=== PATIENT | male | born 1935 | race Caucasian/White ===

== ENCOUNTER → 2018-04-06 14:37 | Outpatient (CLI) | payer OTHER, SELFPAY | PROVIDERS: PCP Internal Medicine; Visit Provider Urology | DX: C61 Malignant neoplasm of prostate (principal) | CPT/HCPCS: 36415; 84153 ==

== ENCOUNTER → 2018-04-21 12:08 | Outpatient (CLI) | payer OTHER, SELFPAY ==
[2018-04-21 13:20] LABS: Add Manual Diff / Slide Review NO; Basophils Percent Auto 0.9 % (0-2); Eosinophils Percent Auto 0.9 % (2-4); Hematocrit 40.4 % (41-53); Hemoglobin 13.5 g/dL (13.5-17.5); Lymphocytes Percent Auto 12.3 % (25-40); Mean Corpuscular HGB Conc 33.5 % (30-36); Mean Corpuscular Hemoglobin 30.7 PG (26-34); Mean Corpuscular Volume 91.6 fL (80-100); Monocytes Percent Auto 12.6 % (3-14); Neutrophils Absolute Auto 4100 /uL (3000-5900); Neutrophils Percent Auto 73.3 % (50-75); Platelet Count 208 X10^3/uL (150-400); Red Blood Cell Count 4.41 X10^6/uL (4.5-5.9); Red Cell Distribution Width 13.3 % (11.6-14.8); White Blood Cell Count 5.6 X10^3/uL (4.5-11.0)
[2018-04-21 13:38] LABS: Alanine Aminotransferase 28 IU/L (21-72); Albumin 4.5 g/dL (3.5-5.0); Albumin Globulin Ratio 1.2 (1.0-2.8); Alkaline Phosphatase 73 U/L (38-126); Aspartate Aminotransferase 34 IU/L (17-59); BUN Creatinine Ratio 17.1 (6-22); Bilirubin Total 0.7 mg/dL (0.2-1.3); Blood Urea Nitrogen 24 mg/dL (9-20); Calcium 10.1 mg/dL (8.4-10.2); Carbon Dioxide 28 mmol/L (22-32); Chloride 100 mmol/L (98-107); Cholesterol 178 mg/dL (140-199); Estimated Glomerular Filt Rate 48.5 mL/min (>60); Globulin 3.9 g/dL (1.7-4.1); Glucose 96 mg/dL (80-110); HDL Cholesterol 63 mg/dL (40-60); HEMOLYSIS < 15 (0-50); LDL Cholesterol Calculated 99 mg/dL (<100); Potassium 5.3 mmol/L (3.4-5.1); Sodium 140 mmol/L (137-145); Total Protein 8.4 g/dL (6.3-8.2); Triglycerides 82 mg/dL (35-150)
== END ==
PROVIDERS: PCP Internal Medicine; Visit Provider Internal Medicine
DX: I10 Essential (primary) hypertension (principal)
CPT/HCPCS: 36415; 80053; 80061; 85025

== ENCOUNTER 2018-07-11 19:18 | Emergency (ER) | payer OTHER, SELFPAY ==
[2018-07-11 19:47] VITALS: BP 133/71; PULSE 81; RESP 18; TEMP 37.1; O2SAT 100; BMI 22.6
--- NOTE | 2018-07-11 20:08 | ED.MALEGU ---
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 He was released from the hospital with an indwelling Kunz catheter, which he states initially it was draining. However, he states that for the last couple of hours he has had a constant sense of needing to urinate, and so he tried to push some urine out. Patient's states that bloody appearing material leaked out around the catheter and soak the patient's pants. They tried to call the urologist, but have not received a call back. Patient states otherwise he is feeling well, other than being tired after the surgery. They state they have come just to be sure everything is okay. Complaint: other ( Bloody urine.) Onset (ago): hour(s) ( Patient has had pink urine since his surgery, but bloody discharge was about 1 hr ago.) Duration: intermittent Location: penis ( Bloody discharge) and abdomen ( Patient has a sense of needing to urinate, and a vague suprapubic discomfort, but otherwise no pain.) Severity: moderate Quality: dull Relieving factors: none Exacerbating factors: none other ( see above) Reports denies other symptoms Related Data Home Medications Medication Instructions Recorded Confirmed ASPIRIN (Aspirin EC) 81 mg PO Q DAY #0 03/02/11 Allergies Allergy/AdvReac Type Severity Reaction Status Date / Time morphine [MORPHINE] AdvReac Intermediate LOSS OF Unverified 07/11/18 19:51 ENERGY, CONSTANTLY NEEDS TO LAY DOWN Review of Systems Review of Systems All systems reviewed & are unremarkable except as noted in HPI and below Constitutional Denies chills, Denies fever(s), Denies lethargy and Denies weakness Eyes Denies change in vision, Denies eye discharge, Denies irritation and Denies loss of vision Cardiovascular Denies chest pain, Denies irregular heart rhythm, Denies lightheadedness, Denies palpitations, Denies dyspnea, Denies dyspnea on exertion and Denies orthopnea Respiratory Denies cough, Denies dyspnea, Denies dyspnea on exertion and Denies wheezing Gastrointestinal Gastrointestinal: Denies abdominal pain, Denies change in bowel habits, Denies diarrhea, Denies nausea and Denies vomiting Genitourinary Reports hematuria Musculoskeletal Denies back pain, Denies muscle weakness, Denies numbness and Denies tingling Integumentary/Breasts Denies pruritus, Denies erythema, Denies rash and Denies wounds Neurologic Denies confusion, Denies loss of vision, Denies numbness, Denies tingling and Denies weakness Psychiatric Denies anxiety, Denies confusion, Denies depression, Denies homicidal ideation and Denies suicidal ideation Endocrine Denies palpitations Hematologic/Lymphatic Denies easy bruising Allergic/Immunologic Denies wheezing [facility] Medical History Bladder tumor (Acute) Bladder tumor (Acute) Surgical History History of bladder surgery (Acute) Social History Smoking Status: Current every day smoker Exam Initial Vital Signs Initial Vital Signs: Vital Signs Temperature 98.7 F 07/11/18 19:47 Pulse Rate 81 07/11/18 19:47 Respiratory Rate 18 07/11/18 19:47 Blood Pressure 133/71 H 07/11/18 19:47 Pulse Oximetry 100 07/11/18 19:47 Const General: cooperative and well developed Nutritional Appearance: well nourished Orientation: alert, awake, oriented x3 and not confused [facility] Head: normocephalic and atraumatic Ears: external ears normal Nose: external nose normal and No nasal discharge Face and sinus: No dry mucous membranes Mouth: oral mucosae normal and moist mucous membranes Teeth and gingiva: dentition normal Eyes General: appearance normal, both eyes and all related structures Eyelids: eyelids normal Conjunctivae: conjunctivae normal Sclera: sclerae normal Pupils: PERRL EOM: EOM intact bilaterally Neck Neck: normal visual inspection, trachea midline, No lymphadenopathy, No midline deformity and No JVD Lymphatic: No lymphedema Chest Chest: normal inspection of the chest Resp Effort & Inspection: normal respiratory effort, able to speak in complete sentences, no respiratory distress and no use of accessory muscles Auscultation: clear to auscultation bilaterally, no rales, no rhonchi and no wheezes Cardio Rate: regular rate Rhythm: regular rhythm Heart Sounds: no click, no gallops, no murmurs and no rubs Pulses: normal peripheral pulses GI Inspection: non-distended Palpation: soft, no hepatosplenomegaly, No guarding, No pulsatile mass and tender (mild, suprapubic) Auscultation: normal bowel sounds Back/Spine/Pelvis Back: No CVA tenderness Cervical Spine: cervical ROM normal and No pain with cervical ROM Thoracic/Lumbar Spine: thoracic and lumbar spine normal to inspection Skin General: no rashes or lesions noted, No jaundice and No petechiae Neuro General: alert, oriented x3, gait normal and no focal motor deficits Speech: speech normal Extrem General: full ROM, no clubbing, cyanosis or edema, no pedal edema and no calf tenderness Psych Appearance: well kempt Mental Status: mental status grossly normal Attitude: cooperative Thought Content: normal and suicidality Judgment: judgment good Course Hospital Course: Patient remained stable throughout his stay in the emergency department. Vital Signs - 8 hr 07/11/18 19:47 Temperature 98.7 F Pulse Rate 81 Respiratory Rate 18 Blood Pressure 133/71 H Pulse Oximetry 100 [facility] - Male Genitourinary Medical Records Attestation: I reviewed the patient's medical records. [facility] Narrative Medical decision making narrative: The patient was quite well-appearing, and I did not feel a UTI with likely, considering the patient's surgery was just today, and he had a dose of prophylactic antibiotics at the time of surgery. Bladder was scanned and found to have less than 100 cc of urine within. Catheter was flushed following this. At this time, I felt patient was stable for discharge home. We have discussed home care, expectations after surgery (with the caveat that for more detailed questions he should ask his surgeon, who is better able to advise him on the subject then I am). The usual indications for returning been discussed. Discharge Plan Departure Patient Disposition: Home Clinical Impression: Hematuria Discharge Date/Time: 07/11/18 20:53 Interventions: ED Discharge Assessment Last Done: 07/11/18 20:53 Activity Restrictions/Additional Instructions: Your bladder scan looks good, and your catheter is clear. If you feel the urge to empty your bladder, please resist the temptation to try to push urine out. This may cause more bleeding in your bladder, and cause stress to the surgical wound. Please plan to follow up with your surgeon, as scheduled. If you develop fevers or worsening abdominal pain, please seek further medical attention. Prescriptions: No Action ASPIRIN (Aspirin EC) 81 mg PO Q DAY Qty: 0 RF: 0 Referrals: Wing Jonas MD [Primary Care Provider] - (as needed; otherwise, follow up as scheduled with your urologist.)
--- NOTE | 2018-07-11 20:48 | PC.NURSE ---
irrigated with 180ml of sterile water with approximately 250mls returned.
[2018-07-11 20:51] VITALS: BP 123/71; PULSE 72; O2SAT 99
--- NOTE | 2018-07-11 21:10 | PC.NURSE ---
educated patient on catheter leg bag/olivo drainage bag and changing catheter from the olivo drainage bag to the leg bag.
== END 2018-07-11 20:53 | disposition home or self-care (01) ==
PROVIDERS: Emergency Provider Emergency Medicine; PCP Internal Medicine
DX: R31.9 Hematuria, unspecified (principal)
CPT/HCPCS: 51700; 51798; 99283

== ENCOUNTER 2019-03-28 16:00 | Outpatient (RCR) | payer OTHER, SELFPAY ==
--- NOTE | 2019-02-15 12:38 | PT.OIE ---
Current Diagnoses Scoliosis, unspecified (02/14/19) Past Medical History (Last Updated 12/04/18 @ 15:25 by Cathy Lundy) Bladder tumor (Acute) Bladder tumor (Acute) Atrial fibrillation (Chronic) COPD (chronic obstructive pulmonary disease) (Chronic) Lumbar spine pain (Chronic) Subdural hematoma (Chronic) History of seizures (Resolved ~2008) Past Surgical History (Last Updated 07/16/18 @ 09:32 by Jo Ann Sosa MD) History of bladder surgery (Acute) Provider Visit Care Team Role Provider Type Chalo Baugh MD Attending Provider Physician Primary Care Provider Specialty: Internal Medicine Address: [address] [place] [address], [facility] Email: Physical Therapy Initial Evaluation PT-OP-A Visit Information Start: 02/15/19 12:01 Freq: Status: Active Protocol: Document 02/14/19 14:30 HH (Rec: 02/15/19 12:38 [email or web address]) Out-Patient Physical Therapy Visit Information Visit Information Visit Type Initial Evaluation Visit Note Pt presented to clinic with his and brought in X-ray from 2011. 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 In 1979, I started changing my diet to raw vegitables, trail mix, and salmon, and my back was doing better after 4/5 months and rarely have pain. 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 In 2011, my back pain started to get worse and x-ray showed scoliosis. Since then, i always have a lot of pain after i get up in the AM and usually gets better during the day. Lifting >30 lbs tends to aggravate my back pain but laying down feels the best. Prior Treatments and Tests x-ray finding in 2011 Treatment Goals Patient/Caregiver Goals 1. To reduce his back pain especially in AM after getting OOB 2. able to lift >30 lbs without back pain 3. to be able to do proper exercises to strengthen his back and LEs Prior Functional Status Baseline Function- ADL's Independent Baseline Function- Mobility Independent Current Functional Impairments (Reported) Functional Limitations- Other Unable to lift >30 lbs due to increased back pain. Personal Factors Other Personal Factors That May Effect current smoker Therapy/Recovery PT-OP-C Subjective Start: 02/15/19 12:01 Freq: Status: Active Protocol: Document 02/14/19 14:30 HH (Rec: 02/15/19 12:38 [email or web address]) OP-PT Subjective Patient Comments Patient Comments I want to get better and be active. Patient Questionnaires Oswestry Low Back Index Oswestry Score 15 Oswestry Impairment 1 to 19% Impaired (Score 1-19) PT-OP-F Manual Assessment Start: 02/15/19 12:01 Freq: Status: Active Protocol: Document 02/14/19 14:30 HH (Rec: 02/15/19 12:38 [email or web address]) Manual Assessments Joint Mobility Assessment Joint Mobility Assessment significant hypomobility at lower thoracic and lumbar spine PT-OP-J Posture/Palpation/Skin Start: 02/15/19 12:01 Freq: Status: Active Protocol: Document 02/14/19 14:30 HH (Rec: 02/15/19 12:38 [email or web address]) Posture Evaluation Position Standing Head/C-Spine Posture Forward Head T-Spine Posture Fixed Scoliosis on (R) L-Spine Posture Fixed Scoliosis on (L) Shoulder Posture (R) Elevated Scapula Posture (R) Protracted (L) Depressed Pelvis Posture (R) Rotated Anterior Weight Distribution Weight Shifted Left Knee Posture (L) Excess Flexion (R) Excess Flexion Ankle/Foot Posture (L) Supinated (R) Supinated PT-OP-K Range of Motion Start: 02/15/19 12:01 Freq: Status: Active Protocol: Document 02/14/19 14:30 HH (Rec: 02/15/19 12:38 [email or web address]) Lumbar Spine Range of Motion Lumbar Spine Active Percentage Testing Position Standing Flexion 60 Extension 20 Rotation Left 40 Rotation Right 30 Lateral Flexion Left 40 Lateral Flexion Right 40 ROM Limitations Soft Tissue Tightness Bony Restriction Muscle Weakness Pain PT-OP-L Special Tests Start: 02/15/19 12:01 Freq: Status: Active Protocol: Document 02/14/19 14:30 HH (Rec: 02/15/19 12:38 [email or web address]) Special Tests Lumbar Spine Special Tests facet syndrome test Test Results +VE Comments extension + rot/ lateral flexion Standing Flexion Test Results +VE Comments Hump on R lower thoracic and L L/S PT-OP-M Strength Start: 02/15/19 12:01 Freq: Status: Active Protocol: Document 02/14/19 14:30 (Rec: 02/15/19 12:38 [email or web address]) Trunk Strength Trunk Manual Muscle Testing Testing Position Sitting Flexion 4- Good- Extension 3+ Fair+ Rotation Left 3+ Fair+ Rotation Right 3+ Fair+ Lateral Flexion Left 3+ Fair+ Lateral Flexion Right 3+ Fair+ Core Stabilization pt tends to use cervical flexors to assist during hollow hold position. PT-OP-Q Treatments Start: 02/15/19 12:01 Freq: Status: Active Protocol: Document 02/14/19 14:30 HH (Rec: 02/15/19 12:38 [email or web address]) Therapeutic Exercises Supine Exercises supine hip wiper Side bilateral Reps/Minutes 10 x2 Comments encourage slow wiper. 1/2 hollow hold Supine Exercise Name knee flexed, arms on the side Side bilateral Reps/Minutes 10 secs x 5 Comments HEP for trunk stability Sitting Exercises seated trunk flexion Side bilateral Equipment Used chair Reps/Minutes 10 x2 Comments ankle touch in seated position PT-OP-T Assessment and Plan Start: 02/15/19 12:01 Freq: Status: Active Protocol: Document 02/14/19 14:30 (Rec: 02/15/19 12:38 [email or web address]) Physical Therapy Assessment Rehab Potential Rehabilitation Potential Good Evaluation Complexity Number of Personal Factors/Comorbidities 3 or More Number of Body Systems Impaired 4 or More Clinical Presentation at Evaluation Stable Impairments Impairments Activity Tolerance Functional Activities Functional Mobility Pain Posture ROM Soft Tissue Mobility Strength Other Concerns Barriers to Rehabilitation chronic smoker Goals trunk ROM Impairment impaired trunk ROM Cue Worker Goal (LTG) Pt will increase his trunk ROM by 20 % to improve trunk mobility for reaching down and during amb. LTG Duration 12 weeks strength Impairment unable to lift >30 lbs Cue Worker Goal (LTG) Pt will be able to improve his trunk strength by 1MMT and able to lift >30 lbs with proper lifting techniques and without increase of symptoms LTG Duration 12 weeks HEP Impairment Pt does not have an exercise program Cue Worker Goal (LTG) Pt will be able to perform HEP with proper techniques independently. LTG Duration 8 weeks Modified oswestry LBP score Impairment impaired quality of life Cue Worker Goal (LTG) Pt will reach 0% impairment for Modified Oswestry LBP questionnaire to improve quality of life LTG Duration 12 weeks Assessment Summary Assessment Pt is a pleasant and motivated 84yo male with chronic LBP since 1960s. Pt's x-ray in 2011 showed significant scoliosis at lower thoracic and lumbar region. Upon standing flexion test, pt presents significant hump at R lower thoracic region and L L /S region. Pt demonstrated fixed R lower thoracic scoliosis and L lumbar scoliosis which was not reversible by repositioning. Pt has increased in pain with trunk extension + ROT/ lateral flexion. Pt also shows lack of trunk ROM and segmental control. He was unable to perform cat/camel today who tends to mobilize his upper thoracic region only. New HEP with seated flexion stretch, 1 /2 hollow hold and supine hip wiper (before getting OOB in AM) At this point, pt will benefit from skilled PT for pt education on bodymechanics, overall trunk stabilization and strengthening which potentially prevent pt to further develop worsening scoliosis. Physical Therapy Plan Frequency and Duration Frequency of Treatment Every Other Week Duration of Treatment 12 Plan of Care Start Date 02/15/19 Plan of Care End Date 05/17/19 Therapeutic Interventions Therapeutic Interventions Home Exercise Program Joint Mobilizations Manual Therapy Neuromuscular Re-education Patient/Caregiver Education Self-Care/Home Management Soft Tissue Mobilization Therapeutic Activities Therapeutic Exercises Modalities Electric Stimulation Hot Packs Next Visit Focus/Plan Next Note Type Treatment Note Next Visit Plan review HEP and pt's udnerstanding of his scoliosis progress trunk ROM/ stabilization ex as amor
--- NOTE | 2019-02-27 13:16 | PT.OTN ---
Current Diagnoses Scoliosis, unspecified (02/27/19) Physical Therapy Treatment Note PT-OP-A Visit Information Start: 02/15/19 12:01 Freq: Status: Active Protocol: Document 02/27/19 11:15 HH (Rec: 02/27/19 13:16 [email or web address]) Out-Patient Physical Therapy Visit Information Visit Information Visit Type Treatment Note Visit Note Pt presented to clinic with his . 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 In 1979, I started changing my diet to raw vegitables, trail mix, and salmon, and my back was doing better after 4/5 months and rarely have pain. 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 In 2011, my back pain started to get worse and x-ray showed scoliosis. Since then, i always have a lot of pain after i get up in the AM and usually gets better during the day. Lifting >30 lbs tends to aggravate my back pain but laying down feels the best. Prior Treatments and Tests x-ray finding in 2012 Treatment Goals Patient/Caregiver Goals 1. To reduce his back pain especially in AM after getting OOB 2. able to lift >30 lbs without back pain 3. to be able to do proper exercises to strengthen his back and LEs Prior Functional Status Baseline Function- ADL's Independent Baseline Function- Mobility Independent Current Functional Impairments (Reported) Functional Limitations- Other Unable to lift >30 lbs due to increased back pain. Personal Factors Other Personal Factors That May Effect current smoker Therapy/Recovery PT-OP-C Subjective Start: 02/15/19 12:01 Freq: Status: Active Protocol: Document 02/27/19 11:15 HH (Rec: 02/27/19 13:16 [email or web address]) OP-PT Subjective Patient Comments Patient Comments Pt and his reports 'we are actually very inactive and lay in bed 16-17 hours a day including sleeping. But we want to start moving more. PT-OP-F Manual Assessment Start: 02/15/19 12:01 Freq: Status: Active Protocol: Document 02/14/19 14:30 HH (Rec: 02/15/19 12:38 [email or web address]) Manual Assessments Joint Mobility Assessment Joint Mobility Assessment significant hypomobility at lower thoracic and lumbar spine PT-OP-J Posture/Palpation/Skin Start: 02/15/19 12:01 Freq: Status: Active Protocol: Document 02/14/19 14:30 HH (Rec: 02/15/19 12:38 [email or web address]) Posture Evaluation Position Standing Head/C-Spine Posture Forward Head T-Spine Posture Fixed Scoliosis on (R) L-Spine Posture Fixed Scoliosis on (L) Shoulder Posture (R) Elevated Scapula Posture (R) Protracted (L) Depressed Pelvis Posture (R) Rotated Anterior Weight Distribution Weight Shifted Left Knee Posture (L) Excess Flexion (R) Excess Flexion Ankle/Foot Posture (L) Supinated (R) Supinated PT-OP-K Range of Motion Start: 02/15/19 12:01 Freq: Status: Active Protocol: Document 02/14/19 14:30 HH (Rec: 02/15/19 12:38 [email or web address]) Lumbar Spine Range of Motion Lumbar Spine Active Percentage Testing Position Standing Flexion 60 Extension 20 Rotation Left 40 Rotation Right 30 Lateral Flexion Left 40 Lateral Flexion Right 40 ROM Limitations Soft Tissue Tightness Bony Restriction Muscle Weakness Pain PT-OP-L Special Tests Start: 02/15/19 12:01 Freq: Status: Active Protocol: Document 02/14/19 14:30 HH (Rec: 02/15/19 12:38 [email or web address]) Special Tests Lumbar Spine Special Tests facet syndrome test Test Results +VE Comments extension + rot/ lateral flexion Standing Flexion Test Results +VE Comments Hump on R lower thoracic and L L/S PT-OP-M Strength Start: 02/15/19 12:01 Freq: Status: Active Protocol: Document 02/14/19 14:30 HH (Rec: 02/15/19 12:38 [email or web address]) Trunk Strength Trunk Manual Muscle Testing Testing Position Sitting Flexion 4- Good- Extension 3+ Fair+ Rotation Left 3+ Fair+ Rotation Right 3+ Fair+ Lateral Flexion Left 3+ Fair+ Lateral Flexion Right 3+ Fair+ Core Stabilization pt tends to use cervical flexors to assist during hollow hold position. PT-OP-Q Treatments Start: 02/15/19 12:01 Freq: Status: Active Protocol: Document 02/27/19 11:15 HH (Rec: 02/27/19 13:16 [email or web address]) Cardio Equipment Recumbent Stepper (Sci-Fit) Duration (Minutes) 8 Resistance 5 Bicycle (Upright) Duration (Minutes) 8 Resistance 5 Therapeutic Exercises Supine Exercises supine hip wiper Side bilateral Reps/Minutes 10 x2 Comments encourage slow wiper. 1/2 hollow hold Supine Exercise Name knee flexed, arms on the side Side bilateral Reps/Minutes 10 secs x 5 Comments HEP for trunk stability Other Exercises seated pelvic rotation Side bilateral Reps/Minutes 5 mins cat camel Side bilateral Reps/Minutes 5mins Comments quadruped PT-OP-T Assessment and Plan Start: 02/15/19 12:01 Freq: Status: Active Protocol: Document 02/27/19 11:15 (Rec: 02/27/19 13:16 [email or web address]) Physical Therapy Assessment Assessment Summary Assessment Pt and his reports 'we are actually very inactive and lay in bed 16-17 hours a day including sleeping. But we want to move more. Pt's current primary limitation is his inactivity and lack of motivation. Educated and recommended pt to use a calender for a daily walking/ exercise program to improve overall strength, endurance and mobility. Pt cont to have difficulty with pelvic control but he did better in seated position for pelvic tilt. Physical Therapy Plan Next Visit Focus/Plan Next Note Type Treatment Note Next Visit Plan assess pt;s ex program trunk ROM/ stabilization ex as amor overall endurance/ strengthening program
--- NOTE | 2019-03-13 15:15 | PT.OTN ---
Current Diagnoses Scoliosis, unspecified (03/13/19) Physical Therapy Treatment Note PT-OP-A Visit Information Start: 02/15/19 12:01 Freq: Status: Active Protocol: Document 03/13/19 14:30 HH (Rec: 03/13/19 15:15 [email or web address]) Out-Patient Physical Therapy Visit Information Visit Information Visit Type Treatment Note Visit Note Pt presented to clinic with his . 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 In 1979, I started changing my diet to raw vegitables, trail mix, and salmon, and my back was doing better after 4/5 months and rarely have pain. 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 In 2011, my back pain started to get worse and x-ray showed scoliosis. Since then, i always have a lot of pain after i get up in the AM and usually gets better during the day. Lifting >30 lbs tends to aggravate my back pain but laying down feels the best. Prior Treatments and Tests x-ray finding in 2012 Treatment Goals Patient/Caregiver Goals 1. To reduce his back pain especially in AM after getting OOB 2. able to lift >30 lbs without back pain 3. to be able to do proper exercises to strengthen his back and LEs Prior Functional Status Baseline Function- ADL's Independent Baseline Function- Mobility Independent Current Functional Impairments (Reported) Functional Limitations- Other Unable to lift >30 lbs due to increased back pain. Personal Factors Other Personal Factors That May Effect current smoker Therapy/Recovery PT-OP-C Subjective Start: 02/15/19 12:01 Freq: Status: Active Protocol: Document 03/13/19 14:30 HH (Rec: 03/13/19 15:15 [email or web address]) OP-PT Subjective Patient Comments Patient Comments I have been moving much but i did get out of the house a few times. I forgot to bring my walking program sheet PT-OP-F Manual Assessment Start: 02/15/19 12:01 Freq: Status: Active Protocol: Document 02/14/19 14:30 HH (Rec: 02/15/19 12:38 [email or web address]) Manual Assessments Joint Mobility Assessment Joint Mobility Assessment significant hypomobility at lower thoracic and lumbar spine PT-OP-J Posture/Palpation/Skin Start: 02/15/19 12:01 Freq: Status: Active Protocol: Document 02/14/19 14:30 HH (Rec: 02/15/19 12:38 [email or web address]) Posture Evaluation Position Standing Head/C-Spine Posture Forward Head T-Spine Posture Fixed Scoliosis on (R) L-Spine Posture Fixed Scoliosis on (L) Shoulder Posture (R) Elevated Scapula Posture (R) Protracted (L) Depressed Pelvis Posture (R) Rotated Anterior Weight Distribution Weight Shifted Left Knee Posture (L) Excess Flexion (R) Excess Flexion Ankle/Foot Posture (L) Supinated (R) Supinated PT-OP-K Range of Motion Start: 02/15/19 12:01 Freq: Status: Active Protocol: Document 02/14/19 14:30 HH (Rec: 02/15/19 12:38 [email or web address]) Lumbar Spine Range of Motion Lumbar Spine Active Percentage Testing Position Standing Flexion 60 Extension 20 Rotation Left 40 Rotation Right 30 Lateral Flexion Left 40 Lateral Flexion Right 40 ROM Limitations Soft Tissue Tightness Bony Restriction Muscle Weakness Pain PT-OP-L Special Tests Start: 02/15/19 12:01 Freq: Status: Active Protocol: Document 02/14/19 14:30 HH (Rec: 02/15/19 12:38 [email or web address]) Special Tests Lumbar Spine Special Tests facet syndrome test Test Results +VE Comments extension + rot/ lateral flexion Standing Flexion Test Results +VE Comments Hump on R lower thoracic and L L/S PT-OP-M Strength Start: 02/15/19 12:01 Freq: Status: Active Protocol: Document 02/14/19 14:30 HH (Rec: 02/15/19 12:38 [email or web address]) Trunk Strength Trunk Manual Muscle Testing Testing Position Sitting Flexion 4- Good- Extension 3+ Fair+ Rotation Left 3+ Fair+ Rotation Right 3+ Fair+ Lateral Flexion Left 3+ Fair+ Lateral Flexion Right 3+ Fair+ Core Stabilization pt tends to use cervical flexors to assist during hollow hold position. PT-OP-Q Treatments Start: 02/15/19 12:01 Freq: Status: Active Protocol: Document 03/13/19 14:30 HH (Rec: 03/13/19 15:15 HH [email or web address]) Cardio Equipment Treadmill Duration (Minutes) 10 Speed 2.2 Incline 0 Therapeutic Exercises Supine Exercises deadbug Side bilateral Reps/Minutes 10 times x 3 supine hip wiper Side bilateral Reps/Minutes 10 x2 Comments encourage slow wiper. 1/2 hollow hold Supine Exercise Name knee flexed, arms on the side Side bilateral Reps/Minutes 10 secs x 5 Comments HEP for trunk stability Sitting Exercises seated trunk extension Side bilateral Equipment Used chair and PVC at T/S Reps/Minutes 10 x2 seated trunk flexion Side bilateral Equipment Used chair Reps/Minutes 10 x2 Comments ankle touch in seated position Standing Exercises standing hip hinge Side bilateral Reps/Minutes 10 x 2 Comments cues to maintain neutral spine front squat Side bilateral Equipment Used with blue weighted ball 4.4 lbs Reps/Minutes 10 x 2 trunk ext + shoulder flex Side bilateral Reps/Minutes 10 x 2 ankle touch Side bilateral Reps/Minutes 10 x 2 Comments buttock against wall PT-OP-T Assessment and Plan Start: 02/15/19 12:01 Freq: Status: Active Protocol: Document 03/13/19 14:30 HH (Rec: 03/13/19 15:15 HH [email or web address]) Physical Therapy Assessment Assessment Summary Assessment Pt cont presents lack of motivation for physical activity. Education is given to cont encourage both pt and his . Pt amor tx well with focus on trunk active movements and overall B LE strengthening. Physical Therapy Plan Next Visit Focus/Plan Next Note Type Treatment Note Next Visit Plan assess pt;s ex program trunk ROM/ stabilization ex as amor overall endurance/ strengthening program
--- NOTE | 2019-03-28 18:23 | PT.OTN ---
Current Diagnoses Scoliosis, unspecified (03/28/19) Physical Therapy Treatment Note PT-OP-A Visit Information Start: 02/15/19 12:01 Freq: Status: Active Protocol: Document 03/28/19 16:00 HH (Rec: 03/28/19 18:23 [email or web address]) Out-Patient Physical Therapy Visit Information Visit Information Visit Type Progress Note Visit Note Pt presented to clinic with his . 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 In 1979, I started changing my diet to raw vegitables, trail mix, and salmon, and my back was doing better after 4/5 months and rarely have pain. 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 In 2011, my back pain started to get worse and x-ray showed scoliosis. Since then, i always have a lot of pain after i get up in the AM and usually gets better during the day. Lifting >30 lbs tends to aggravate my back pain but laying down feels the best. Prior Treatments and Tests x-ray finding in 2012 Treatment Goals Patient/Caregiver Goals 1. To reduce his back pain especially in AM after getting OOB 2. able to lift >30 lbs without back pain 3. to be able to do proper exercises to strengthen his back and LEs Prior Functional Status Baseline Function- ADL's Independent Baseline Function- Mobility Independent Current Functional Impairments (Reported) Functional Limitations- Other Unable to lift >30 lbs due to increased back pain. Personal Factors Other Personal Factors That May Effect current smoker Therapy/Recovery PT-OP-C Subjective Start: 02/15/19 12:01 Freq: Status: Active Protocol: Document 03/28/19 16:00 HH (Rec: 03/28/19 18:23 [email or web address]) OP-PT Subjective Patient Comments Patient Comments Me and my has been walking a little bit for 10 mins few times a week now. My back is doing good so far. PT-OP-F Manual Assessment Start: 02/15/19 12:01 Freq: Status: Active Protocol: Document 02/14/19 14:30 HH (Rec: 02/15/19 12:38 [email or web address]) Manual Assessments Joint Mobility Assessment Joint Mobility Assessment significant hypomobility at lower thoracic and lumbar spine PT-OP-J Posture/Palpation/Skin Start: 02/15/19 12:01 Freq: Status: Active Protocol: Document 02/14/19 14:30 HH (Rec: 02/15/19 12:38 [email or web address]) Posture Evaluation Position Standing Head/C-Spine Posture Forward Head T-Spine Posture Fixed Scoliosis on (R) L-Spine Posture Fixed Scoliosis on (L) Shoulder Posture (R) Elevated Scapula Posture (R) Protracted (L) Depressed Pelvis Posture (R) Rotated Anterior Weight Distribution Weight Shifted Left Knee Posture (L) Excess Flexion (R) Excess Flexion Ankle/Foot Posture (L) Supinated (R) Supinated PT-OP-K Range of Motion Start: 02/15/19 12:01 Freq: Status: Active Protocol: Document 02/14/19 14:30 HH (Rec: 02/15/19 12:38 [email or web address]) Lumbar Spine Range of Motion Lumbar Spine Active Percentage Testing Position Standing Flexion 60 Extension 20 Rotation Left 40 Rotation Right 30 Lateral Flexion Left 40 Lateral Flexion Right 40 ROM Limitations Soft Tissue Tightness Bony Restriction Muscle Weakness Pain PT-OP-L Special Tests Start: 02/15/19 12:01 Freq: Status: Active Protocol: Document 02/14/19 14:30 HH (Rec: 02/15/19 12:38 [email or web address]) Special Tests Lumbar Spine Special Tests facet syndrome test Test Results +VE Comments extension + rot/ lateral flexion Standing Flexion Test Results +VE Comments Hump on R lower thoracic and L L/S PT-OP-M Strength Start: 02/15/19 12:01 Freq: Status: Active Protocol: Document 02/14/19 14:30 HH (Rec: 02/15/19 12:38 [email or web address]) Trunk Strength Trunk Manual Muscle Testing Testing Position Sitting Flexion 4- Good- Extension 3+ Fair+ Rotation Left 3+ Fair+ Rotation Right 3+ Fair+ Lateral Flexion Left 3+ Fair+ Lateral Flexion Right 3+ Fair+ Core Stabilization pt tends to use cervical flexors to assist during hollow hold position. PT-OP-Q Treatments Start: 02/15/19 12:01 Freq: Status: Active Protocol: Document 03/28/19 16:00 (Rec: 03/28/19 18:23 [email or web address]) Cardio Equipment Elliptical Duration (Minutes) 5 Resistance 3 Recumbent Stepper (Sci-Fit) Duration (Minutes) 5 Resistance 10 Therapeutic Exercises Supine Exercises supine leg lift Side bilateral Reps/Minutes 10 secs hold x 5 deadbug Side bilateral Reps/Minutes 10 times x 5 1/2 hollow hold Supine Exercise Name knee flexed, arms on the side Side bilateral Reps/Minutes 10 secs x 5 Comments HEP for trunk stability Prone Exercises prone ext on ball Equipment Used red therapy ball Reps/Minutes 10secs hold x 5 Sitting Exercises seated trunk flexion Side bilateral Equipment Used chair Reps/Minutes 10 x2 Comments ankle touch in seated position Standing Exercises lateral deadlift Side bilateral Equipment Used 2 x10 lbs DB Reps/Minutes 10 x 2 Comments lift from chair from the side. front deadlift Side bilateral Equipment Used 2 x 10lbs db Reps/Minutes 10 x 2 Comments lift from 10 inch box with neutral spine PT-OP-T Assessment and Plan Start: 02/15/19 12:01 Freq: Status: Active Protocol: Document 03/28/19 16:00 (Rec: 03/28/19 18:23 [email or web address]) Physical Therapy Assessment Goals trunk ROM Impairment impaired trunk ROM Clin Asst Goal (LTG) Pt will increase his trunk ROM by 20 % to improve trunk mobility for reaching down and during amb. LTG Duration 12 weeks strength Impairment unable to lift >30 lbs Clin Asst Goal (LTG) 515; able to lift 20 lbs DB Pt will be able to improve his trunk strength by 1MMT and able to lift >30 lbs with proper lifting techniques and without increase of symptoms LTG Duration 12 weeks HEP Impairment Pt does not have an exercise program Clin Asst Goal (LTG) 515; pt still primarily inactive but started to walk 10mins few times a week. Pt will be able to perform HEP with proper techniques independently. LTG Duration 8 weeks Modified oswestry LBP score Impairment impaired quality of life Alf Goal (LTG) Pt will reach 0% impairment for Modified Oswestry LBP questionnaire to improve quality of life LTG Duration 12 weeks Progress Towards Goals Progress Towards Goals Slow Progress due to Noncompliance Assessment Summary Assessment pt showed improved motivation for exercises. Focused on overall mobility and strengthening for core and back today. He feels very fatigue after using eliptical. Remind pt again the importance of daily walking to overall health. Physical Therapy Plan Next Visit Focus/Plan Next Note Type Treatment Note Next Visit Plan assess pt;s ex program trunk ROM/ stabilization ex as amor overall endurance/ strengthening program
== END 2019-06-20 14:56 | disposition home or self-care (01) ==
LOC: PHYS 16:00
PROVIDERS: PCP Student in an Organized Health Care Education/Training Program; Visit Provider Student in an Organized Health Care Education/Training Program
DX: M41.9 Scoliosis, unspecified (principal)
CPT/HCPCS: 97110; 97163

== ENCOUNTER → 2019-05-29 14:42 | Outpatient (CLI) | payer OTHER, SELFPAY ==
[2019-05-29 17:21] LABS: Prostate Specific Antigen 4.95 ng/mL (0.10-4.00)
== END ==
PROVIDERS: PCP Student in an Organized Health Care Education/Training Program; Visit Provider Urology
DX: C61 Malignant neoplasm of prostate (principal)
CPT/HCPCS: 36415; 84153

== ENCOUNTER → 2019-07-17 15:35 | Outpatient (CLI) | payer OTHER, SELFPAY ==
--- NOTE | 2019-07-17 15:38 | DI.RAD.S_ITS ---
PROCEDURE: XR CHEST 2V INDICATIONS: diminished breath sounds right TECHNIQUE: 2 views of the chest were acquired. COMPARISON: [facility], , CHEST 2 VIEW, 01/17/2012, 13:18. FINDINGS: Surgical changes and devices: None. Lungs and pleura: Lungs are clear. No pleural effusions or pneumothorax. Mediastinum: Mediastinal contours are normal. Heart size is normal. Bones and chest wall: No suspicious bony abnormalities. Soft tissues appear unremarkable. IMPRESSION: Normal for age, source of current signs and symptoms potentially a manifestation of pneumonia symptoms is not seen. Dictated by: Bebo Ford M.D. on 07/17/2019 at 16:11 Approved by: Bebo Ford M.D. on 07/17/2019 at 16:11
== END ==
PROVIDERS: PCP Student in an Organized Health Care Education/Training Program; Visit Provider Nurse Practitioner Family
DX: R05 Cough (principal)
CPT/HCPCS: 71046

== ENCOUNTER → 2019-07-31 10:19 | Outpatient (CLI) | payer OTHER, SELFPAY ==
[2019-07-31 10:56] LABS: Add Manual Diff / Slide Review NO; Basophils Absolute Auto 0 /uL (0-100); Basophils Percent Auto 0.5 % (0-2); Eosinophils Absolute Auto 100 /uL (0-450); Eosinophils Percent Auto 1.6 % (2-4); Hematocrit 39.2 % (41-53); Hemoglobin 13.1 g/dL (13.5-17.5); Lymphocytes Absolute Auto 800 /uL (1100-4500); Lymphocytes Percent Auto 12.3 % (25-40); Mean Corpuscular HGB Conc 33.3 % (30-36); Mean Corpuscular Volume 93.1 fL (80-100); Monocytes Absolute Auto 400 /uL (0-900); Neutrophils Absolute Auto 4900 /uL (1500-7000); Neutrophils Percent Auto 79.6 % (50-75); Platelet Count 154 X10^3/uL (150-400); Red Blood Cell Count 4.22 X10^6/uL (4.5-5.9); Red Cell Distribution Width 13.7 % (11.6-14.8); White Blood Cell Count 6.2 X10^3/uL (4.5-11.0)
--- NOTE | 2019-07-31 11:01 | DI.CT.S_ITS ---
PROCEDURE: CT CHEST WO CON INDICATIONS: SOB TECHNIQUE: Noncontrast 5 mm thick sections acquired from the pulmonary apices to the posterior costophrenic angles. 1 mm lung window, 5 mm thick coronal and sagittal and 7 mm axial MIP reformats were then acquired. For radiation dose reduction, the following was used: automated exposure control, adjustment of mA and/or kV according to patient size. COMPARISON: None. FINDINGS: Image quality: Excellent. Lungs and pleura: There is a 1.4 cm maximum diameter spiculated mass in the superior segment of the right upper lobe which is highly suspicious for a small bronchogenic carcinoma. A 2 mm subpleural nodule is present in the left lower lobe. There is a 0.3 x 0.6 cm nodular density in the left apex. No acute air space opacities. No pleural effusions or pneumothorax. Central and peripheral airways are patent and normal in caliber. Mediastinum: Heart size is normal. No pericardial effusion. Left main coronary artery calcifications. No mediastinal adenopathy by size criteria. Thoracic aorta and central pulmonary arteries are normal in size. Esophagus is normal in caliber. No hiatal hernia. Bones and chest wall: No suspicious bony lesions. Multifactorial canal stenosis at L3-L4. No vertebral body compression fractures. No axillary or supraclavicular adenopathy by size criteria. Thyroid gland contains a large benign calcification in the right lobe measuring 1 cm.. Abdomen: Visualized upper abdominal solid organs and bowel loops appear normal in the absence of contrast. IMPRESSION: 1. 1.4 cm maximum diameter spiculated mass in the right upper lobe, highly suspicious for bronchogenic carcinoma. 2. There is also a 0.3 x 0.6 cm left upper lobe nodule and a 2 mm left lower lobe nodule. 3. Coronary artery disease. Comment: Consider PET/CT. Additionally, the right upper lobe mass is amenable to CT-guided biopsy for tissue diagnosis. Dictated by: Jayce Hernandez M.D. on 07/31/2019 at 10:52 Approved by: Jayce Hernandez M.D. on 07/31/2019 at 11:14
[2019-07-31 11:16] LABS: Blood Urea Nitrogen 35 mg/dL (9-20); C-Reactive Protein Quant 0.7 mg/dL (<1.0); Calcium 9.5 mg/dL (8.4-10.2); Carbon Dioxide 27 mmol/L (22-32); Chloride 102 mmol/L (98-107); Estimated Glomerular Filt Rate 48.4 mL/min (>60); Glucose 153 mg/dL (80-110); HEMOLYSIS < 15 (0-50); Potassium 4.2 mmol/L (3.4-5.1); Sodium 138 mmol/L (137-145)
[2019-07-31 11:44] LABS: Procalcitonin < 0.05 ng/mL (<0.5)
== END ==
PROVIDERS: PCP Student in an Organized Health Care Education/Training Program; Visit Provider Student in an Organized Health Care Education/Training Program
DX: R06.02 Shortness of breath (principal); R91.8 Other nonspecific abnormal finding of lung field; J98.8 Other specified respiratory disorders; I25.10 Atherosclerotic heart disease of native coronary artery without angina pectoris; M48.061 Spinal stenosis, lumbar region without neurogenic claudication
CPT/HCPCS: 36415; 71250; 80048; 84145; 85025; 86140

== ENCOUNTER → 2019-12-28 11:39 | Outpatient (CLI) | payer OTHER, SELFPAY ==
--- NOTE | 2019-12-28 11:41 | DI.CT.S_ITS ---
PROCEDURE: CT CHEST WO CON INDICATIONS: Right upper lobe lung mass TECHNIQUE: Noncontrast 2.0-2.5 mm thick sections acquired from the pulmonary apices to the posterior costophrenic angles. 7 mm thick axial MIP and 5 mm coronal and sagittal reformats were then acquired. A low radiation dose technique was utilized. COMPARISON: [facility], [place], PET NECK TO MID THIGH, 08/10/2019, 14:11. [facility], CT, CT CHEST WO CON, 07/31/2019, 10:24. FINDINGS: Image quality: Diagnostic, given the low radiation dose technique. Lungs and pleura: There is a 1.4 cm spiculated nodule in the superior segment of the right upper lobe, unchanged since the last exam. A cluster of 3-4 mm subpleural nodules are seen anterior to the major fissure, also unchanged. There is discoid atelectasis in the right lower lobe. Mediastinum: Heart size is normal. No pericardial effusion. No mediastinal adenopathy by size criteria. Thoracic aorta and central pulmonary arteries are normal in size. Moderate atherosclerosis. Esophagus is normal in caliber. No hiatal hernia. Bones and chest wall: No suspicious bony lesions. No vertebral body compression fractures. No axillary or supraclavicular adenopathy by size criteria. There is a densely calcified nodule in the right thyroid lobe. Abdomen: Visualized upper abdomen solid organs and bowel loops appear normal in the absence of contrast. IMPRESSION: 1. A 1.4 cm spiculated nodule in the superior segment right lower lobe, unchanged in size. Continued followup is recommended. 2. A cluster of small lung nodules are seen in the right upper lobe are stable, most likely inflammatory or infectious in etiology. Fleischner Society criteria for SOLID lung nodule followup. Nodule size (mm)Low-risk patientHigh-risk patient<6 (single or multiple)No routine followup.Optional CT at 12 months. 6-8 (single or multiple)CT at 6-12 months, then optional CT at 18-24 mo.CT at 6-12 months, then CT at 18-24 months. >8 (single)CT at 3 months, PET-CT, or biopsy. Same as for low-risk pts. >8 (multiple)CT at 3-6 months, then optional CT at 18-24 mo.CT at 3-6 months, then CT at 18-24 months. Fleischner Society criteria for SUB-SOLID lung nodule followup. Solitary pure ground-glass nodules<6 mm (ground glass or part solid)No followup needed. 6 mm or larger (ground glass)CT at 6-12 months to confirm persistence, then CT every 2 years until 5 years.6 mm or larger (part solid)CT at 3-6 months to confirm persistence, then annual CT until 5 years if unchanged and solid component remains <6 mm. Multiple sub-solid nodules<6 mmCT at 3-6 months, then CT consider at 2 & 4 years for high risk patients. [address] at 3-6 months. Subsequent management based on most suspicious lesions. Recommendations do not apply to lung cancer screening, patients with immunosuppression, or patients with known primary cancer. Dictated by: Luann Hodgson M.D. on 12/28/2019 at 14:01 Approved by: Luann Hodgson M.D. on 12/28/2019 at 18:18
== END ==
PROVIDERS: PCP Student in an Organized Health Care Education/Training Program; Referring Provider Student in an Organized Health Care Education/Training Program; Visit Provider Student in an Organized Health Care Education/Training Program
DX: R91.8 Other nonspecific abnormal finding of lung field (principal)
CPT/HCPCS: 71250

== ENCOUNTER 2020-02-26 10:40 | Emergency (ER) | payer OTHER, SELFPAY ==
[2020-02-26 10:47] VITALS: BP 142/67; PULSE 72; RESP 16; TEMP 36.7; O2SAT 99; BMI 19.8
--- NOTE | 2020-02-26 11:17 | ED.GENADULT ---
HPI - General Adult General Chief complaint: Extremity Injury, Upper Stated complaint: Pain in both shoulders Time Seen by Provider: 02/26/20 10:49 Source: patient Mode of arrival: Ambulatory Limitations: no limitations History of Present Illness HPI narrative: 85-year-old male here for evaluation of bilateral shoulder pain. He states that it has been going on for the past 2-3 weeks. No specific trauma. States it is worse in the morning. It does hurt him to raise his arms above his head. He is getting some tingling down both of his arms. Took a 1 time dose of an anti-inflammatory couple days ago and has also been taking a muscle relaxant he has at home without any improvement. He has also been using topical CBD oil without much relief. Related Data Home Medications Medication Instructions Recorded Confirmed aspirin 81 mg tablet,delayed 81 mg PO DAILY 07/31/19 01/15/20 release Previous Rx's Medication Instructions Recorded tizanidine 4 mg capsule 4 mg PO Q12H PRN #30 cap 04/04/19 lisinopril 10 mg tablet 10 mg PO DAILY #90 tab 06/20/19 albuterol sulfate 90 mcg/actuation 2 puff INHALATION Q6H PRN #8 gram 07/17/19 aerosol inhaler atorvastatin 10 mg tablet 10 mg PO BEDTIME #90 tab 07/18/19 meloxicam [Mobic] 7.5 mg PO BID PRN #60 tab 02/26/20 Allergies Allergy/AdvReac Type Severity Reaction Status Date / Time morphine [MORPHINE] AdvReac Intermediate LOSS OF Verified 01/15/20 11:04 ENERGY, CONSTANTLY NEEDS TO LAY DOWN Review of Systems Constitutional Constitutional: Denies fever(s) and Denies headache(s) ENT Ears, Nose, Mouth, and Throat: Denies headache(s) Cardiovascular Cardiovascular: Denies chest pain and Denies dyspnea Respiratory Respiratory: Denies dyspnea Gastrointestinal Gastrointestinal: Denies abdominal pain Genitourinary Genitourinary: Denies dysuria Musculoskeletal Musculoskeletal: Reports tingling Comments: Bilateral shoulder pain Integumentary/Breasts Skin/Breast: Denies rash Neurologic Neurologic: Denies headache(s) and Reports tingling Hematologic/Lymphatic Hematologic/Lymphatic: Denies easy bleeding and Denies easy bruising Allergic/Immunologic Allergic/Immunologic: Denies urticaria Patient History Medical History Atrial fibrillation (Chronic) Bladder tumor (Acute) Bladder tumor (Acute) COPD (chronic obstructive pulmonary disease) (Chronic) History of seizures (Resolved ~2008) Lumbar spine pain (Chronic) Subdural hematoma (Chronic) Surgical History (Updated 07/16/18 @ 09:32 by Jo Ann Sosa MD) History of bladder surgery (Acute) Family History (Updated 12/04/18 @ 15:26 by Cathyjean paul Lundy) Brother Cancer Brother Cancer Father No problems noted. Social History Smoking Status: Current every day smoker Smoking Status: Current every day smoker alcohol intake frequency: 0-2 drinks per day Substance Use Type: former substance user Exam Initial Vital Signs Initial Vital Signs: Vital Signs Temperature 98.1 F 02/26/20 10:47 Pulse Rate 72 02/26/20 10:47 Respiratory Rate 16 02/26/20 10:47 Blood Pressure 142/67 H 02/26/20 10:47 Pulse Oximetry 99 02/26/20 10:47 Const General: cooperative and comfortable Limitations: mental status not altered HENMT Head: normal to inspection and normocephalic Resp Effort & Inspection: normal respiratory effort Auscultation: clear to auscultation bilaterally Cardio Rate: regular rate Rhythm: regular rhythm Back/Spine/Pelvis Cervical Spine: cervical muscular tenderness, No cervical spinal tenderness and No step off deformity Thoracic/Lumbar Spine: No thoracic spinal tenderness Skin Lesions: no lesions Rashes: no rashes Neuro General: alert, awake and oriented x3 Cognition: normal cognition Speech: speech normal Extrem General: normal to inspection and capillary refill normal Psych Appearance: grossly normal and well kempt Course Vital Signs Vital signs: Vital Signs - 8 hr 02/26/20 10:47 Temperature 98.1 F Pulse Rate 72 Respiratory Rate 16 Blood Pressure 142/67 H Pulse Oximetry 99 Medical Decision Making MDM Narrative Medical decision making narrative: Symptoms most consistent with musculoskeletal etiology. Low suspicion for acute surgical issue or trauma. We did discuss use of anti-inflammatories. Will send home with a prescription for Mobic. He has muscle relaxers at home. Given his age we will avoid opioid medication. Have him follow-up with his primary provider. Feel patient could be safely discharged home without further workup here in the ER. Discharge Plan Departure Patient Disposition: Home Clinical Impression: Bilateral shoulder pain Qualifiers: Chronicity: acute Qualified Code(s): M25.511 - Pain in right shoulder Instructions: How To Perform RICE (Rest, Ice, Compress, Elevate), DI for Shoulder Pain Activity Restrictions/Additional Instructions: Recommend that you take the Mobic as directed for the next 7-10 days with food. He can continue your other medications as directed. Contact your primary provider for follow-up. Prescriptions: New meloxicam [Mobic] 7.5 mg tablet 7.5 mg PO BID PRN (Reason: pain) Qty: 60 RF: 0 No Action tizanidine 4 mg capsule 4 mg PO Q12H PRN (Reason: muscle spasticity) Qty: 30 RF: 5 lisinopril 10 mg tablet 10 mg PO DAILY Qty: 90 RF: 3 atorvastatin 10 mg tablet 10 mg PO BEDTIME Qty: 90 RF: 3 aspirin [Adult Low Dose Aspirin] 81 mg tablet,delayed release (DR/EC) 81 mg PO DAILY RF: 0 albuterol sulfate 90 mcg/actuation HFA aerosol inhaler 2 puff INHALATION Q6H PRN (Reason: shortness of breath or wheezing) Qty: 8 RF: 0 Referrals: Chalo Baugh MD [Primary Care Provider] -
[2020-02-26 11:28] VITALS: BP 157/72; PULSE 63; RESP 16; O2SAT 99
== END 2020-02-26 11:29 | disposition home or self-care (01) ==
PROVIDERS: Emergency Provider Emergency Medicine; PCP Student in an Organized Health Care Education/Training Program
DX: M25.511 Pain in right shoulder (principal); M25.512 Pain in left shoulder
CPT/HCPCS: 99281

== ENCOUNTER → 2020-03-26 12:10 | Outpatient (CLI) | payer OTHER, SELFPAY ==
[2020-03-26 13:21] LABS: Add Manual Diff / Slide Review NO; Basophils Absolute Auto 100 /uL (0-100); Basophils Percent Auto 0.7 % (0-2); Eosinophils Absolute Auto 0 /uL (0-450); Eosinophils Percent Auto 0.3 % (2-4); Hematocrit 31.2 % (41-53); Hemoglobin 10.2 g/dL (13.5-17.5); Lymphocytes Absolute Auto 900 /uL (1100-4500); Lymphocytes Percent Auto 7.6 % (25-40); Mean Corpuscular HGB Conc 32.6 % (30-36); Mean Corpuscular Hemoglobin 29.2 PG (26-34); Mean Corpuscular Volume 89.4 fL (80-100); Monocytes Absolute Auto 1300 /uL (0-900); Monocytes Percent Auto 11.7 % (3-14); Neutrophils Absolute Auto 9000 /uL (1500-7000); Neutrophils Percent Auto 79.7 % (50-75); Platelet Count 359 X10^3/uL (150-400); Red Blood Cell Count 3.49 X10^6/uL (4.5-5.9); Red Cell Distribution Width 13.4 % (11.6-14.8); White Blood Cell Count 11.3 X10^3/uL (4.5-11.0)
[2020-03-26 13:35] LABS: HEMOLYSIS < 15 (0-50); Potassium 4.9 mmol/L (3.4-5.1)
[2020-03-26 13:38] LABS: BUN Creatinine Ratio 33.9 (6-22); Blood Urea Nitrogen 41 mg/dL (9-20); C-Reactive Protein Quant 5.7 mg/dL (<1.0); Calcium 9.9 mg/dL (8.4-10.2); Carbon Dioxide 27 mmol/L (22-32); Chloride 101 mmol/L (98-107); Creatine Kinase 33 U/L (55-170); Estimated Glomerular Filt Rate 57.1 mL/min (>60); Glucose 104 mg/dL (80-110); Sodium 135 mmol/L (137-145)
[2020-03-26 13:41] LABS: Erythrocyte Sedimentation Rate 58 MM/HR (0-15)
[2020-03-26 14:06] LABS: TSH w/ Reflex to FT4 1.82 uIU/mL (0.47-4.68)
== END ==
PROVIDERS: PCP Student in an Organized Health Care Education/Training Program; Referring Provider Student in an Organized Health Care Education/Training Program; Visit Provider Student in an Organized Health Care Education/Training Program
DX: C61 Malignant neoplasm of prostate (principal); M79.10 Myalgia, unspecified site
CPT/HCPCS: 36415; 80048; 82550; 84153; 84443; 85025; 85651; 86140

== ENCOUNTER → 2021-01-23 13:50 | Outpatient (CLI) | payer MEDICARE, SELFPAY ==
[2021-01-23] MEDS: COVID-19 VACC, Ad26(JANSSEN)/PF 0.5 ML IM (13:58)
== END ==
PROVIDERS: PCP Student in an Organized Health Care Education/Training Program; Visit Provider Internal Medicine
DX: Z23 Encounter for immunization (principal)
CPT/HCPCS: 0031A; 91303

== ENCOUNTER → 2021-04-15 11:04 | Outpatient (CLI) | payer OTHER, SELFPAY ==
[2021-04-15 12:37] LABS: COVID19 -Nasal RAPID Negative (Negative)
== END ==
PROVIDERS: PCP Student in an Organized Health Care Education/Training Program; Referring Provider Internal Medicine; Visit Provider Internal Medicine
DX: Z20.822 Contact with and (suspected) exposure to COVID-19 (principal)
CPT/HCPCS: 87635; C9803

== ENCOUNTER → 2021-04-28 10:59 | Outpatient (CLI) | payer OTHER, SELFPAY ==
[2021-04-28 12:28] LABS: COVID19 -Nasal RAPID Negative (Negative)
== END ==
PROVIDERS: PCP Student in an Organized Health Care Education/Training Program; Referring Provider Internal Medicine; Visit Provider Internal Medicine
DX: Z20.822 Contact with and (suspected) exposure to COVID-19 (principal)
CPT/HCPCS: 87635; C9803

== ENCOUNTER → 2021-04-29 08:57 | Outpatient (CLI) | payer OTHER, SELFPAY ==
--- NOTE | 2021-05-01 17:05 | P.PFT.S_ITS ---
Pulmonary Function Test Referral & Results Date Patient Seen: 04/29/21 Requesting provider: Chalo Baugh Indication: COPD Results: The spirometry demonstrates an FVC of 3.44 L which is 94% of predicted. The FEV1 was measured at 2.3 L which is 94% of predicted. The FEV1/FVC ratio was 69 which is 98% of predicted. Following the administration of bronchodilator there was no appreciable change. Lung volumes show an SVC of 3.63 L which is 87% of predicted. The diffusing capacity was measured at 14.48 which is 46% of predicted. No hemoglobin value was provided, so no correction for potential anemia could be ma de, if appropriate. The maximum voluntary ventilation was severely reduced Interpretation: This study demonstrates probably normal spirometry but a severely reduced diffusing capacity suggests significant disease at the capillary alveolar level Patient's severe reduction maximum voluntary ventilation without other evidence of obstructive or restrictive lung disease suggest significant neuromuscular disease as well Clinical correlation suggested
--- NOTE | 2021-05-08 08:45 | PM.PFT.1 ---
Pulmonary Function Test Referral & Results Date Patient Seen: 04/29/21 Requesting provider: Chalo Baugh Indication: COPD Results: The spirometry demonstrates an FVC of 3.44 L which is 94% of predicted. The FEV1 was measured at 2.3 L which is 94% of predicted. The FEV1/FVC ratio was 69 which is 98% of predicted. Following the administration of bronchodilator there was no appreciable change to above normal numbers. Lung volumes show an SVC of 3.63 L which is 87% of predicted. The diffusing capacity was measured at 14.48 which is 46% of predicted. No hemoglobin value was provided, so no correction for potential anemia could be made, if appropriate. The maximum voluntary ventilation was severely reduced Interpretation: This study demonstrates normal spirometry but a moderately severe reduction in diffusing capacity suggesting significant disease at the capillary alveolar level. In addition patient has a significantly reduced maximum voluntary ventilation which in the absence of other lung disease suggest significant neuromuscular disease is present Compared to PFTs performed in January 2012, current spirometry is much improved as previously patient showed evidence of obstructive lung disease with significant benefit following bronchodilator that is not seen on current study Diffusing capacity is actually slightly improved over prior number Maximum voluntary ventilation previously was much better than current study Clinical correlation suggested
== END ==
PROVIDERS: PCP Student in an Organized Health Care Education/Training Program; Referring Provider Student in an Organized Health Care Education/Training Program; Visit Provider Student in an Organized Health Care Education/Training Program
DX: J44.9 Chronic obstructive pulmonary disease, unspecified (principal); F17.210 Nicotine dependence, cigarettes, uncomplicated
CPT/HCPCS: 94060; 94726; 94729

== ENCOUNTER 2021-08-27 14:00 | Outpatient (RCR) | payer OTHER, SELFPAY | END 2021-08-27 16:00 | LOC: PUL 14:00 | PROVIDERS: PCP Student in an Organized Health Care Education/Training Program; Referring Provider Student in an Organized Health Care Education/Training Program; Visit Provider Student in an Organized Health Care Education/Training Program | DX: J44.9 Chronic obstructive pulmonary disease, unspecified (principal) | CPT/HCPCS: G0424 ==

== ENCOUNTER 2022-05-03 08:15 | Outpatient (RCR) | payer OTHER, SELFPAY ==
--- NOTE | 2022-03-23 15:15 | PT.OIE ---
Current Diagnoses Scoliosis, unspecified (03/25/22) Other spondylosis with radiculopathy, lumbosacral region (03/25/22) Weakness (03/25/22) Past Medical History (Last Reviewed 02/26/20 @ 11:18 by Chaim Harrison DO) Atrial fibrillation Bladder tumor Bladder tumor COPD (chronic obstructive pulmonary disease) History of bladder surgery History of seizures (~2008) Lumbar spine pain Subdural hematoma Past Surgical History (Last Updated 07/16/18 @ 09:32 by Jo Ann Sosa MD) History of bladder surgery Visit Care Team Role Provider Type Chalo Baugh MD Attending Provider Physician Family Provider Primary Care Provider Referring Provider Specialty: Internal Medicine Address: [address] [place] [address], [address], [facility] Email: [email or web address] Physical Therapy Initial Evaluation PT-OP-A Visit Information Start: 03/15/22 17:25 Freq: Status: Active Protocol: Document 03/23/22 15:14 [facility] (Rec: 03/23/22 16:25 [facility] [id number]) Out-Patient Physical Therapy Visit Information Visit Information Visit Type Initial Evaluation Visit Start Time 15:15 Visit Stop Time 16:01 Total Visit Minutes 46 Visit Number 1 Evaluation Information Evaluation Date 03/23/22 Precautions Precautions chronic pain extremely [place] PT-OP-B Current Condition Start: 03/15/22 17:25 Freq: Status: Active Protocol: Document 03/23/22 15:14 [facility]AK (Rec: 03/23/22 16:25 [facility] [id number]) Current Condition History of Current Condition Onset Date 1953 Current Complaints low back pain History of Current Condition Pain after coming back from [place], then 1974 increase pain after heavy lifting of bags of sand, worked it out. Periodically in following years would have pain but able to walk it out. 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 Not as active over the past 10 years due to caring for his who was suffering from depression, PTSD and severe LBP. Currently activity level very low, daily extrememly short walks with dog. Reports he and his have been spending the majority of time in bed, no regular activity level. States he would like 2 or 3 important exercises to focus on. States he uses Kratom Maengdae supplement otherwise I wouldn't be able to get out of bed in the morning. 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 Prior Treatments and Tests x-rays: reports scoliosis, no report or images Future Testing and Treatments Planned none planned beyond PT at this time Treatment Goals Patient/Caregiver Goals minimize pain, improve his strength and activity level/ tolerance Prior Functional Status Baseline Function- ADL's Independent Baseline Function- Mobility Independent Baseline Function- Gait independent without device Baseline Function- Work/School retired Baseline Function- Recreation/Hobbies none Current Functional Impairments (Reported) Functional Limitations- ADL's painful Functional Limitations- Mobility/Gait painful Functional Limitations- Work/School retired Functional Limitations- Recreation/ painful Hobbies Personal Factors Other Personal Factors That May Effect 's LBP, depression, PTSD Therapy/Recovery PT-OP-C Subjective Start: 03/15/22 17:25 Freq: Status: Active Protocol: Document 03/23/22 15:14 [facility] (Rec: 03/23/22 16:25 [facility] [id number]) Patient Questionnaires Oswestry Low Back Index Oswestry Score 38 OP-PT Pain Assessment Pain Assessment Grid Paper Pain Assessment Grid Completed Yes Location central LBP Intensity 6 Scale Used Numeric (0 - 10) Pain Alleviating Factors Medication,Inactivity Home Pain Medication Use Pain Medications Used Yes Patient Goal minimize or eliminate PT-OP-G Mobility & Gait Start: 03/15/22 17:25 Freq: Status: Active Protocol: Document 03/23/22 15:15 [facility] (Rec: 03/25/22 16:07 [facility] [id number]) OP Gait Assessment Gait Gait Assistance Required: Independent Assistive Devices Assistive Device None Gait Deviations General Gait Pattern Flexed Trunk,Lateral Trunk Lean,Wide Based Gait Factors Limiting Gait Function Factors Limiting Gait Function Decreased Activity Tolerance, Limited Range of Motion,Pain PT-OP-H Neuro Start: 03/15/22 17:25 Freq: Status: Active Protocol: Document 03/23/22 15:15 [facility] (Rec: 03/25/22 16:07 [facility] [id number]) Sensation Evaluation Gross Sensation Gross Sensation WNL PT-OP-J Posture/Palpation/Skin Start: 03/15/22 17:25 Freq: Status: Active Protocol: Document 03/23/22 15:15 [facility] (Rec: 03/25/22 16:07 [facility] [id number]) Posture Evaluation Position Standing T-Spine Posture Fixed Scoliosis on (L),Fixed Scoliosis on (R),Increased Kyphosis L-Spine Posture Flattened Shoulder Posture (L) Rounded,(R) Rounded Scapula Posture (L) Protracted,(R) Protracted Arm Posture (L) Internally Rotated,(R) Internally Rotated Hip Posture (L) Externally Rotated,(R) Externally Rotated Knee Posture (L) Genu Varus,(R) Genu Varus Ankle/Foot Posture (L) Pronated,(R) Pronated Palpation Assessment Location lumbar paraspinals Palpation Findings Soft Tissue Tightness PT-OP-K Range of Motion Start: 03/15/22 17:25 Freq: Status: Active Protocol: Document 03/23/22 15:15 [facility] (Rec: 03/25/22 16:07 [facility] [id number]) Lumbar Spine Range of Motion Lumbar Spine Active Testing Position Standing Flexion 40 Extension 0 Rotation Left 15 Rotation Right 15 Lateral Flexion Left 20 Lateral Flexion Right 20 ROM Limitations Soft Tissue Tightness PT-OP-L Special Tests Start: 03/15/22 17:25 Freq: Status: Active Protocol: Document 03/23/22 15:15 [facility] (Rec: 03/25/22 16:07 [facility] [id number]) Special Tests Lumbar Spine Special Tests Slump Test Results negative Straight Leg Raise Test Results negative Comments muscle tightness only facet syndrome test Test Results positive Standing Flexion Test Results positive PT-OP-M Strength Start: 03/15/22 17:25 Freq: Status: Active Protocol: Document 03/23/22 15:15 [facility] (Rec: 03/25/22 16:07 [facility] [id number]) Trunk Strength Trunk Manual Muscle Testing Flexion 4- Good- Extension 4- Good- Hip Strength Hip Manual Muscle Testing jessica Flexion (L2) 4 Good Extension (S1) 3+ Fair+ Abduction 4- Good- External Rotation 3+ Fair+ Internal Rotation 4- Good- Knee Strength Knee Manual Muscle Testing jessica Flexion (S2) 4+ Good+ Extension (L3) 4+ Good+ Ankle/Foot Strength Ankle and Foot Manual Muscle Testing jessica Dorsiflexion (L4) 4+ Good+ Plantarflexion (S1) 4+ Good+ PT-OP-T Assessment and Plan Start: 03/15/22 17:25 Freq: Status: Active Protocol: Document 03/23/22 15:14 [facility] (Rec: 03/23/22 16:25 [facility] [id number]) Physical Therapy Assessment Rehab Potential Rehabilitation Potential Good Evaluation Complexity Number of Personal Factors/Comorbidities 1-2 Number of Body Systems Impaired 3 Clinical Presentation at Evaluation Evolving Impairments Impairments Activity Tolerance,Pain, Posture,Soft Tissue Mobility, Strength Goals Three Impairment pain Impairment function-limiting pain at 6/10 today, increases with increase in activity Workforce Management Manager Goal (LTG) Patient able to resume prior level of function with pain no greater than 3/10 LTG Duration 05/22/22 Two Impairment no regular exercise program, spends most of day in bed Impairment decreased soft tissue mobility , strength, flexibility Jail Goal (LTG) patient to be independent and compliant with a HEP with emphasis on walking program, flexibility, and strengthening for long-term fitness and pain management LTG Duration 05/22/22 One Impairment decreased activity tolerance due to LBP Impairment Oswestry disability index score 38% Workforce Management Manager Goal (LTG) Decrease Oswestry Disability Index score to no greater than 10% as measure of improved activity tolerance and function in the home and community LTG Duration 05/22/22 Assessment Summary Assessment Patient presents with function -limiting low back pain without radicular symptoms worsening recently. Patient has significant scoliosis, decreased flexibility, and strength, and well as severely limited activity level largely due to caring for who has severe depression as well as LBP. Signs and symptoms consistent with degenerative process in spine. Patient expresses desire to develop home exercise program to help improve his pain and activity level. Evaluation findings and plan of care discussed and patient is in agreement and seems eager and highly receptive to education in exercises this date. Physical Therapy Plan Frequency and Duration Frequency of Treatment 2x/Week Duration of Treatment 8 weeks Plan of Care Start Date 03/23/22 Plan of Care End Date 05/22/22 Therapeutic Interventions Therapeutic Interventions Aquatic Therapy,Home Exercise Program,Manual Therapy, Neuromuscular Re-education, Patient/Caregiver Education, Self-Care/Home Management,Soft Tissue Mobilization,Taping, Therapeutic Activities, Therapeutic Exercises Modalities Electric Stimulation,Hot Packs ,Ultrasound Next Visit Focus/Plan Next Note Type Treatment Note Next Visit Plan Review HEP issued today. Gentle progression of therapeutic exercises with emphasis on core strengthening , flexibility, and improving activity tolerence. Manual therapy and modalities as needed for pain
--- NOTE | 2022-03-23 15:15 | PT.OPPOC ---
Physical, Occupational & Speech Therapy At [facility] Current Diagnoses Scoliosis, unspecified (03/25/22) Other spondylosis with radiculopathy, lumbosacral region (03/25/22) Weakness (03/25/22) Visit Care Team Role Provider Type Chalo Baugh MD Attending Provider Physician Family Provider Primary Care Provider Referring Provider Specialty: Internal Medicine Address: [address] [place] [address], [address], [facility] Email: [email or web address] Plan Of Care PT-OP-T Assessment and Plan Start: 03/15/22 17:25 Freq: Status: Active Protocol: Document 03/23/22 15:14 [facility] (Rec: 03/23/22 16:25 [facility] [id number]) Physical Therapy Assessment Rehab Potential Rehabilitation Potential Good Evaluation Complexity Number of Personal Factors/Comorbidities 1-2 Number of Body Systems Impaired 3 Clinical Presentation at Evaluation Evolving Impairments Impairments Activity Tolerance,Pain, Posture,Soft Tissue Mobility, Strength Goals Three Impairment pain Impairment function-limiting pain at 6/10 today, increases with increase in activity Detention Goal (LTG) Patient able to resume prior level of function with pain no greater than 3/10 LTG Duration 05/22/22 Two Impairment no regular exercise program, spends most of day in bed Impairment decreased soft tissue mobility , strength, flexibility Detention Goal (LTG) patient to be independent and compliant with a HEP with emphasis on walking program, flexibility, and strengthening for long-term fitness and pain management LTG Duration 05/22/22 One Impairment decreased activity tolerance due to LBP Impairment Oswestry disability index score 38% Detention Goal (LTG) Decrease Oswestry Disability Index score to no greater than 10% as measure of improved activity tolerance and function in the home and community LTG Duration 05/22/22 Assessment Summary Assessment Patient presents with function -limiting low back pain without radicular symptoms worsening recently. Patient has significant scoliosis, decreased flexibility, and strength, and well as severely limited activity level largely due to caring for who has severe depression as well as LBP. Signs and symptoms consistent with degenerative process in spine. Patient expresses desire to develop home exercise program to help improve his pain and activity level. Evaluation findings and plan of care discussed and patient is in agreement and seems eager and highly receptive to education in exercises this date. Physical Therapy Plan Frequency and Duration Frequency of Treatment 2x/Week Duration of Treatment 8 weeks Plan of Care Start Date 03/23/22 Plan of Care End Date 05/22/22 Therapeutic Interventions Therapeutic Interventions Aquatic Therapy,Home Exercise Program,Manual Therapy, Neuromuscular Re-education, Patient/Caregiver Education, Self-Care/Home Management,Soft Tissue Mobilization,Taping, Therapeutic Activities, Therapeutic Exercises Modalities Electric Stimulation,Hot Packs ,Ultrasound Next Visit Focus/Plan Next Note Type Treatment Note Next Visit Plan Review HEP issued today. Gentle progression of therapeutic exercises with emphasis on core strengthening , flexibility, and improving activity tolerence. Manual therapy and modalities as needed for pain Plan of Care Dates Plan of Care Start Date 03/23/22 Plan of Care End Date 05/22/22 Electronically Signed by: Isi Yoon, PT 03/25/22 [id number] If you are in agreement with this Plan of Care, please return a signed and dated copy. I have reviewed this Plan of Care and certify that the skilled therapy services above are required to meet the patient?s needs. Physician Signature Date Printed Name and Credentials Clinical Instructor Signature Printed Name and Credentials
--- NOTE | 2022-03-25 15:15 | PT.OTN ---
Current Diagnoses Scoliosis, unspecified (03/25/22) Other spondylosis with radiculopathy, lumbosacral region (03/25/22) Weakness (03/25/22) Physical Therapy Treatment Note PT-OP-A Visit Information Start: 03/15/22 17:25 Freq: Status: Active Protocol: Document 03/25/22 15:15 [facility] (Rec: 03/28/22 08:53 [facility] [id number]) Out-Patient Physical Therapy Visit Information Visit Information Visit Type Treatment Note Visit Start Time 15:15 Visit Stop Time 16:05 Total Visit Minutes 50 Visit Number 2 Evaluation Information Evaluation Date 03/23/22 Precautions Precautions chronic pain extremely [place] PT-OP-B Current Condition Start: 03/15/22 17:25 Freq: Status: Active Protocol: Document 03/25/22 15:15 SAK (Rec: 03/28/22 08:53 [facility] [id number]) Current Condition History of Current Condition Onset Date 1953 Current Complaints low back pain History of Current Condition Pain after coming back from [place], then 1974 increase pain after heavy lifting of bags of sand, worked it out. Periodically in following years would have pain but able to walk it out. 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 Not as active over the past 10 years due to caring for his who was suffering from depression, PTSD and severe LBP. Currently activity level very low, daily extrememly short walks with dog. Reports he and his have been spending the majority of time in bed, no regular activity level. States he would like 2 or 3 important exercises to focus on. States he uses Kratom Maengdae supplement otherwise I wouldn't be able to get out of bed in the morning. 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 Prior Treatments and Tests x-rays: reports scoliosis, no report or images Future Testing and Treatments Planned none planned beyond PT at this time PT-OP-C Subjective Start: 03/15/22 17:25 Freq: Status: Active Protocol: Document 03/25/22 15:15 SAK (Rec: 03/28/22 08:53 [facility] [id number]) OP-PT Subjective Patient Comments Patient Comments No new c/o, did his exercises, feels better when he exercises. Has not started taking walks yet as recommended. PT-OP-G Mobility & Gait Start: 03/15/22 17:25 Freq: Status: Active Protocol: Document 03/23/22 15:15 [facility] (Rec: 03/25/22 16:07 [facility] [id number]) OP Gait Assessment Gait Gait Assistance Required: Independent Assistive Devices Assistive Device None Gait Deviations General Gait Pattern Flexed Trunk,Lateral Trunk Lean,Wide Based Gait Factors Limiting Gait Function Factors Limiting Gait Function Decreased Activity Tolerance, Limited Range of Motion,Pain PT-OP-H Neuro Start: 03/15/22 17:25 Freq: Status: Active Protocol: Document 03/23/22 15:15 [facility] (Rec: 03/25/22 16:07 [facility] [id number]) Sensation Evaluation Gross Sensation Gross Sensation WNL PT-OP-J Posture/Palpation/Skin Start: 03/15/22 17:25 Freq: Status: Active Protocol: Document 03/23/22 15:15 [facility] (Rec: 03/25/22 16:07 [facility] [id number]) Posture Evaluation Position Standing T-Spine Posture Fixed Scoliosis on (L),Fixed Scoliosis on (R),Increased Kyphosis L-Spine Posture Flattened Shoulder Posture (L) Rounded,(R) Rounded Scapula Posture (L) Protracted,(R) Protracted Arm Posture (L) Internally Rotated,(R) Internally Rotated Hip Posture (L) Externally Rotated,(R) Externally Rotated Knee Posture (L) Genu Varus,(R) Genu Varus Ankle/Foot Posture (L) Pronated,(R) Pronated Palpation Assessment Location lumbar paraspinals Palpation Findings Soft Tissue Tightness PT-OP-K Range of Motion Start: 03/15/22 17:25 Freq: Status: Active Protocol: Document 03/23/22 15:15 [facility] (Rec: 03/25/22 16:07 [facility] [id number]) Lumbar Spine Range of Motion Lumbar Spine Active Testing Position Standing Flexion 40 Extension 0 Rotation Left 15 Rotation Right 15 Lateral Flexion Left 20 Lateral Flexion Right 20 ROM Limitations Soft Tissue Tightness PT-OP-L Special Tests Start: 03/15/22 17:25 Freq: Status: Active Protocol: Document 03/23/22 15:15 [facility] (Rec: 03/25/22 16:07 [facility] [id number]) Special Tests Lumbar Spine Special Tests Slump Test Results negative Straight Leg Raise Test Results negative Comments muscle tightness only facet syndrome test Test Results positive Standing Flexion Test Results positive PT-OP-M Strength Start: 03/15/22 17:25 Freq: Status: Active Protocol: Document 03/23/22 15:15 [facility] (Rec: 03/25/22 16:07 [facility] [id number]) Trunk Strength Trunk Manual Muscle Testing Flexion 4- Good- Extension 4- Good- Hip Strength Hip Manual Muscle Testing jessica Flexion (L2) 4 Good Extension (S1) 3+ Fair+ Abduction 4- Good- External Rotation 3+ Fair+ Internal Rotation 4- Good- Knee Strength Knee Manual Muscle Testing jessica Flexion (S2) 4+ Good+ Extension (L3) 4+ Good+ Ankle/Foot Strength Ankle and Foot Manual Muscle Testing jessica Dorsiflexion (L4) 4+ Good+ Plantarflexion (S1) 4+ Good+ PT-OP-Q Treatments Start: 03/15/22 17:25 Freq: Status: Active Protocol: Document 03/25/22 15:15 [facility] (Rec: 03/28/22 08:53 [facility] [id number]) Cardio Equipment Recumbent Stepper (Sci-Fit) Duration (Minutes) 5 Resistance 1 Seat Position 10 Gym Equipment Shuttle Recovery Unilateral Squats Resistance 25 Shuttle Recovery Platform Stable Reps/Time 10x2 Bilateral Squats Resistance 50 Shuttle Recovery Platform Stable Reps/Time 10x2 Therapeutic Exercises Supine Exercises TrA with bridge Reps/Minutes 10x Comments cues for core activation TrA with gluteal set Reps/Minutes 10x Comments cues for core activation TrA with hip ab/ER Reps/Minutes 10x Comments cues for core activation TrA with ball squeeze Reps/Minutes 10x Comments cues for core activation TrA Reps/Minutes 10x Comments cues for core activation Sitting Exercises sit to stand Sitting Exercise Name hip hinge Reps/Minutes 10x Comments cues for no UE support Standing Exercises Shld ext Reps/Minutes 10x Comments cues for core activation Row Resistance L1 TB Reps/Minutes 10x Comments cues for core activation Self-Care/Home Management Treatment Education Patient Education Home Exercise Program,Pain Management,Posture PT-OP-R Modalities Start: 03/15/22 17:25 Freq: Status: Active Protocol: Document 03/25/22 15:15 [facility] (Rec: 03/28/22 08:53 [facility] [id number]) Hot Pack/Cold Pack Treatment Hot Pack Location lumbar spine Patient Position Hooklying Treatment Duration (minutes) 10 Patient Tolerance Good PT-OP-T Assessment and Plan Start: 03/15/22 17:25 Freq: Status: Active Protocol: Document 03/25/22 15:15 [facility] (Rec: 03/28/22 08:53 [facility] [id number]) Physical Therapy Assessment Goals Three Impairment pain Impairment function-limiting pain at 6/10 today, increases with increase in activity [facility]ci Goal (LTG) Patient able to resume prior level of function with pain no greater than 3/10 LTG Duration 05/22/22 Two Impairment no regular exercise program, spends most of day in bed Impairment decreased soft tissue mobility , strength, flexibility 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) patient to be independent and compliant with a HEP with emphasis on walking program, flexibility, and strengthening for long-term fitness and pain management LTG Duration 05/22/22 One Impairment decreased activity tolerance due to LBP Impairment Oswestry disability index score 38% [facility]ci Goal (LTG) Decrease Oswestry Disability Index score to no greater than 10% as measure of improved activity tolerance and function in the home and community LTG Duration 05/22/22 Assessment Summary Assessment Patient demonstrated good tolerance to ther ex with frequent cues for core activation, correction of postural alignment. Reports decreased pain with exercise. Good response to moist heat. Physical Therapy Plan Frequency and Duration Frequency of Treatment 2x/Week Duration of Treatment 8 weeks Plan of Care Start Date 03/23/22 Plan of Care End Date 05/22/22 Therapeutic Interventions Therapeutic Interventions Aquatic Therapy,Home Exercise Program,Manual Therapy, Neuromuscular Re-education, Patient/Caregiver Education, Self-Care/Home Management,Soft Tissue Mobilization,Taping, Therapeutic Activities, Therapeutic Exercises Modalities Electric Stimulation,Hot Packs ,Ultrasound Next Visit Focus/Plan Next Note Type Treatment Note Next Visit Plan Continue progression of ther ex with inc time on Sci-Fit, inc weight on shuttle recovery as tolerated, standing strengthening.
--- NOTE | 2022-03-30 16:12 | PT.OTN ---
Current Diagnoses Scoliosis, unspecified (03/30/22) Other spondylosis with radiculopathy, lumbosacral region (03/30/22) Weakness (03/30/22) Physical Therapy Treatment Note PT-OP-A Visit Information Start: 03/15/22 17:25 Freq: Status: Active Protocol: Document 03/30/22 15:16 [facility] (Rec: 03/30/22 16:11 [facility] [id number]) Out-Patient Physical Therapy Visit Information Visit Information Visit Type Treatment Note Visit Start Time 15:15 Visit Stop Time 16:05 Total Visit Minutes 50 Visit Number 3 Evaluation Information Evaluation Date 03/23/22 Precautions Precautions chronic pain extremely [place] PT-OP-B Current Condition Start: 03/15/22 17:25 Freq: Status: Active Protocol: Document 03/30/22 15:16 [facility]AK (Rec: 03/30/22 16:11 [facility] [id number]) Current Condition History of Current Condition Onset Date 1953 Current Complaints low back pain History of Current Condition Pain after coming back from [place] War, then 1974 increase pain after heavy lifting of bags of sand, worked it out. Periodically in following years would have pain but able to walk it out. 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 Not as active over the past 10 years due to caring for his who was suffering from depression, PTSD and severe LBP. Currently activity level very low, daily extrememly short walks with dog. Reports he and his have been spending the majority of time in bed, no regular activity level. States he would like 2 or 3 important exercises to focus on. States he uses Kratom Maengdae supplement otherwise I wouldn't be able to get out of bed in the morning. 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 Prior Treatments and Tests x-rays: reports scoliosis, no report or images Future Testing and Treatments Planned none planned beyond PT at this time Treatment Goals Patient/Caregiver Goals minimize pain, improve his strength and activity level/ tolerance PT-OP-C Subjective Start: 03/15/22 17:25 Freq: Status: Active Protocol: Document 03/30/22 15:16 [facility]AK (Rec: 03/30/22 16:11 [facility] [id number]) OP-PT Subjective Patient Comments Patient Comments Trying to spend more time outside of the bed. not exercising as much as I should , haven't started taking walks yet as recommended. States he used to do TM ( transendental meditationl), having a hard time getting back to it. PT-OP-G Mobility & Gait Start: 03/15/22 17:25 Freq: Status: Active Protocol: Document 03/23/22 15:15 [facility] (Rec: 03/25/22 16:07 [facility] [id number]) OP Gait Assessment Gait Gait Assistance Required: Independent Assistive Devices Assistive Device None Gait Deviations General Gait Pattern Flexed Trunk,Lateral Trunk Lean,Wide Based Gait Factors Limiting Gait Function Factors Limiting Gait Function Decreased Activity Tolerance, Limited Range of Motion,Pain PT-OP-H Neuro Start: 03/15/22 17:25 Freq: Status: Active Protocol: Document 03/23/22 15:15 [facility] (Rec: 03/25/22 16:07 [facility] [id number]) Sensation Evaluation Gross Sensation Gross Sensation WNL PT-OP-J Posture/Palpation/Skin Start: 03/15/22 17:25 Freq: Status: Active Protocol: Document 03/23/22 15:15 [facility] (Rec: 03/25/22 16:07 [facility] [id number]) Posture Evaluation Position Standing T-Spine Posture Fixed Scoliosis on (L),Fixed Scoliosis on (R),Increased Kyphosis L-Spine Posture Flattened Shoulder Posture (L) Rounded,(R) Rounded Scapula Posture (L) Protracted,(R) Protracted Arm Posture (L) Internally Rotated,(R) Internally Rotated Hip Posture (L) Externally Rotated,(R) Externally Rotated Knee Posture (L) Genu Varus,(R) Genu Varus Ankle/Foot Posture (L) Pronated,(R) Pronated Palpation Assessment Location lumbar paraspinals Palpation Findings Soft Tissue Tightness PT-OP-K Range of Motion Start: 03/15/22 17:25 Freq: Status: Active Protocol: Document 03/23/22 15:15 [facility] (Rec: 03/25/22 16:07 [facility] [id number]) Lumbar Spine Range of Motion Lumbar Spine Active Testing Position Standing Flexion 40 Extension 0 Rotation Left 15 Rotation Right 15 Lateral Flexion Left 20 Lateral Flexion Right 20 ROM Limitations Soft Tissue Tightness PT-OP-L Special Tests Start: 03/15/22 17:25 Freq: Status: Active Protocol: Document 03/23/22 15:15 [facility] (Rec: 03/25/22 16:07 [facility] [id number]) Special Tests Lumbar Spine Special Tests Slump Test Results negative Straight Leg Raise Test Results negative Comments muscle tightness only facet syndrome test Test Results positive Standing Flexion Test Results positive PT-OP-M Strength Start: 03/15/22 17:25 Freq: Status: Active Protocol: Document 03/23/22 15:15 [facility] (Rec: 03/25/22 16:07 [facility] [id number]) Trunk Strength Trunk Manual Muscle Testing Flexion 4- Good- Extension 4- Good- Hip Strength Hip Manual Muscle Testing jessica Flexion (L2) 4 Good Extension (S1) 3+ Fair+ Abduction 4- Good- External Rotation 3+ Fair+ Internal Rotation 4- Good- Knee Strength Knee Manual Muscle Testing jessica Flexion (S2) 4+ Good+ Extension (L3) 4+ Good+ Ankle/Foot Strength Ankle and Foot Manual Muscle Testing jessica Dorsiflexion (L4) 4+ Good+ Plantarflexion (S1) 4+ Good+ PT-OP-Q Treatments Start: 03/15/22 17:25 Freq: Status: Active Protocol: Document 03/30/22 15:16 [facility] (Rec: 03/30/22 16:11 [facility] [id number]) Cardio Equipment Recumbent Stepper (Sci-Fit) Duration (Minutes) 10 Resistance 10 Seat Position 12 Other 1.41 miles, RPM 50-60 Therapeutic Exercises Supine Exercises TrA with bridge Reps/Minutes 10x Comments cues for core activation TrA with gluteal set Reps/Minutes 10x Comments cues for core activation TrA with hip ab/ER Reps/Minutes 10x Comments cues for core activation TrA with ball squeeze Reps/Minutes 10x Comments cues for core activation Sitting Exercises piriformis stretch Equipment Used chair Reps/Minutes 2x30 Comments ankle across knee Standing Exercises hip abduction Equipment Used parallel bars; UE support as needed for balance Reps/Minutes 10x Comments cues for small motion, feet straight forward, upright posture march Reps/Minutes 10x Comments cues for upright posture good mornings Reps/Minutes 10x Shld ext Resistance L1 TB Reps/Minutes 12x Comments cues for core activation Row Resistance L1 TB Reps/Minutes 12x Comments cues for core activation Therapeutic Activity Therapeutic Activity walking Name initiated walking program Reps/Minutes 5 min Comments outside, cues for postural correction, abdominal support Self-Care/Home Management Treatment Education Patient Education Home Exercise Program,Pain Management,Posture Activities Self-Care/Home Management Activities Try taking brief walks as done today (5 min), continue HEP including good mornings as he initiated on his own. PT-OP-R Modalities Start: 03/15/22 17:25 Freq: Status: Active Protocol: Document 03/30/22 15:16 [facility] (Rec: 03/30/22 16:11 [facility] [id number]) Hot Pack/Cold Pack Treatment Hot Pack Location lumbar spine Patient Position Hooklying Treatment Duration (minutes) 15 Patient Tolerance Good PT-OP-T Assessment and Plan Start: 03/15/22 17:25 Freq: Status: Active Protocol: Document 03/30/22 15:16 [facility] (Rec: 03/30/22 16:11 [facility] [id number]) Physical Therapy Assessment Goals Three Impairment pain Impairment function-limiting pain at 6/10 today, increases with increase in activity Roll On Worker Goal (LTG) Patient able to resume prior level of function with pain no greater than 3/10 LTG Duration 05/22/22 Two Impairment no regular exercise program, spends most of day in bed Impairment decreased soft tissue mobility , strength, flexibility [facility]ci Goal (LTG) patient to be independent and compliant with a HEP with emphasis on walking program, flexibility, and strengthening for long-term fitness and pain management LTG Duration 05/22/22 One Impairment decreased activity tolerance due to LBP Impairment Oswestry disability index score 38% [facility]ci Goal (LTG) Decrease Oswestry Disability Index score to no greater than 10% as measure of improved activity tolerance and function in the home and community LTG Duration 05/22/22 Assessment Summary Assessment Patient able to progress to level 2 on Sci-Fit with increased time from 5 to 10 min. Started walking program with cues for core activation and stabilization. Mild fatigue noted after walk and exercise. Denied increase in pain. Physical Therapy Plan Frequency and Duration Frequency of Treatment 2x/Week Duration of Treatment 8 weeks Plan of Care Start Date 03/23/22 Plan of Care End Date 05/22/22 Therapeutic Interventions Therapeutic Interventions Aquatic Therapy,Home Exercise Program,Manual Therapy, Neuromuscular Re-education, Patient/Caregiver Education, Self-Care/Home Management,Soft Tissue Mobilization,Taping, Therapeutic Activities, Therapeutic Exercises Modalities Electric Stimulation,Hot Packs ,Ultrasound Next Visit Focus/Plan Next Note Type Treatment Note Next Visit Plan Continue gentle progression of ther ex including longer walk if tolerated. Add sidestepping holding theraband at umbilicus for core strengthening.
--- NOTE | 2022-04-06 16:17 | PT.OTN ---
Current Diagnoses Scoliosis, unspecified (04/06/22) Other spondylosis with radiculopathy, lumbosacral region (04/06/22) Weakness (04/06/22) Physical Therapy Treatment Note PT-OP-A Visit Information Start: 03/15/22 17:25 Freq: Status: Active Protocol: Document 04/06/22 15:16 [facility]AK (Rec: 04/06/22 16:17 [facility] [id number]) Out-Patient Physical Therapy Visit Information Visit Information Visit Type Treatment Note Visit Note Has been doing exercises hit or miss. Agrees he feels better when he exercises. Not going for walks, I get caught up doing silly things. Visit Start Time 15:15 Visit Stop Time 16:10 Total Visit Minutes 55 Visit Number 4 Evaluation Information Evaluation Date 03/23/22 Precautions Precautions chronic pain extremely [place] PT-OP-B Current Condition Start: 03/15/22 17:25 Freq: Status: Active Protocol: Document 04/06/22 15:16 SAK (Rec: 04/06/22 16:17 [facility] [id number]) Current Condition History of Current Condition Onset Date 1953 Current Complaints low back pain History of Current Condition Pain after coming back from [place] War, then 1974 increase pain after heavy lifting of bags of sand, worked it out. Periodically in following years would have pain but able to walk it out. 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 Not as active over the past 10 years due to caring for his who was suffering from depression, PTSD and severe LBP. Currently activity level very low, daily extrememly short walks with dog. Reports he and his have been spending the majority of time in bed, no regular activity level. States he would like 2 or 3 important exercises to focus on. States he uses Kratom Maengdae supplement otherwise I wouldn't be able to get out of bed in the morning. 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 Prior Treatments and Tests x-rays: reports scoliosis, no report or images Future Testing and Treatments Planned none planned beyond PT at this time PT-OP-C Subjective Start: 03/15/22 17:25 Freq: Status: Active Protocol: Document 03/30/22 15:16 SAK (Rec: 03/30/22 16:11 [facility] [id number]) OP-PT Subjective Patient Comments Patient Comments Trying to spend more time outside of the bed. not exercising as much as I should , haven't started taking walks yet as recommended. States he used to do TM ( transendental meditationl), having a hard time getting back to it. PT-OP-G Mobility & Gait Start: 03/15/22 17:25 Freq: Status: Active Protocol: Document 03/23/22 15:15 [facility] (Rec: 03/25/22 16:07 [facility] [id number]) OP Gait Assessment Gait Gait Assistance Required: Independent Assistive Devices Assistive Device None Gait Deviations General Gait Pattern Flexed Trunk,Lateral Trunk Lean,Wide Based Gait Factors Limiting Gait Function Factors Limiting Gait Function Decreased Activity Tolerance, Limited Range of Motion,Pain PT-OP-H Neuro Start: 03/15/22 17:25 Freq: Status: Active Protocol: Document 03/23/22 15:15 [facility] (Rec: 03/25/22 16:07 [facility] [id number]) Sensation Evaluation Gross Sensation Gross Sensation WNL PT-OP-J Posture/Palpation/Skin Start: 03/15/22 17:25 Freq: Status: Active Protocol: Document 03/23/22 15:15 [facility] (Rec: 03/25/22 16:07 [facility] [id number]) Posture Evaluation Position Standing T-Spine Posture Fixed Scoliosis on (L),Fixed Scoliosis on (R),Increased Kyphosis L-Spine Posture Flattened Shoulder Posture (L) Rounded,(R) Rounded Scapula Posture (L) Protracted,(R) Protracted Arm Posture (L) Internally Rotated,(R) Internally Rotated Hip Posture (L) Externally Rotated,(R) Externally Rotated Knee Posture (L) Genu Varus,(R) Genu Varus Ankle/Foot Posture (L) Pronated,(R) Pronated Palpation Assessment Location lumbar paraspinals Palpation Findings Soft Tissue Tightness PT-OP-K Range of Motion Start: 03/15/22 17:25 Freq: Status: Active Protocol: Document 03/23/22 15:15 [facility] (Rec: 03/25/22 16:07 [facility] [id number]) Lumbar Spine Range of Motion Lumbar Spine Active Testing Position Standing Flexion 40 Extension 0 Rotation Left 15 Rotation Right 15 Lateral Flexion Left 20 Lateral Flexion Right 20 ROM Limitations Soft Tissue Tightness PT-OP-L Special Tests Start: 03/15/22 17:25 Freq: Status: Active Protocol: Document 03/23/22 15:15 [facility] (Rec: 03/25/22 16:07 [facility] [id number]) Special Tests Lumbar Spine Special Tests Slump Test Results negative Straight Leg Raise Test Results negative Comments muscle tightness only facet syndrome test Test Results positive Standing Flexion Test Results positive PT-OP-M Strength Start: 03/15/22 17:25 Freq: Status: Active Protocol: Document 03/23/22 15:15 [facility] (Rec: 03/25/22 16:07 [facility] [id number]) Trunk Strength Trunk Manual Muscle Testing Flexion 4- Good- Extension 4- Good- Hip Strength Hip Manual Muscle Testing jessica Flexion (L2) 4 Good Extension (S1) 3+ Fair+ Abduction 4- Good- External Rotation 3+ Fair+ Internal Rotation 4- Good- Knee Strength Knee Manual Muscle Testing jessica Flexion (S2) 4+ Good+ Extension (L3) 4+ Good+ Ankle/Foot Strength Ankle and Foot Manual Muscle Testing jessica Dorsiflexion (L4) 4+ Good+ Plantarflexion (S1) 4+ Good+ PT-OP-Q Treatments Start: 03/15/22 17:25 Freq: Status: Active Protocol: Document 04/06/22 15:16 [facility] (Rec: 04/06/22 16:17 [facility] [id number]) Cardio Equipment Recumbent Stepper (Sci-Fit) Duration (Minutes) 10 Resistance 10 Seat Position 12 Therapeutic Exercises Supine Exercises TrA with bridge Reps/Minutes 15x Comments cues for core activation TrA with gluteal set Reps/Minutes 15x Comments cues for core activation TrA with hip ab/ER Equipment Used L2 TB Reps/Minutes 10x Comments cues for core activation TrA with ball squeeze Reps/Minutes 10x Comments cues for core activation Sitting Exercises HS stretch Reps/Minutes 2x30 trunk rotation Reps/Minutes 3x5 seated cat/cow Reps/Minutes 5x lateral trunk stretch Reps/Minutes 3x5 Comments arm overhead overhead stretch Reps/Minutes 3x5 Comments with deep breath march Reps/Minutes 10 Comments emphasis on upright posture and core stab TrA Reps/Minutes 5x piriformis stretch Equipment Used chair Reps/Minutes 2x30 Comments ankle across knee push down, then knee to opp should sit to stand Sitting Exercise Name hip hinge Reps/Minutes 10x Comments cues for no UE support Therapeutic Activity Therapeutic Activity walking Reps/Minutes 6 min Comments outside, cues for postural correction, core activation Self-Care/Home Management Treatment Education Patient Education Home Exercise Program,Pain Management,Posture Activities Self-Care/Home Management Activities Increase compliance to HEP. Reviewed exercise routine patient found online for back rehab with ex as above. Patient to print out for review next session to assure safe performance. PT-OP-R Modalities Start: 03/15/22 17:25 Freq: Status: Active Protocol: Document 04/06/22 15:16 [facility] (Rec: 04/06/22 16:17 [facility] [id number]) Hot Pack/Cold Pack Treatment Hot Pack Location lumbar spine Patient Position Hooklying Treatment Duration (minutes) 15 Patient Tolerance Good PT-OP-T Assessment and Plan Start: 03/15/22 17:25 Freq: Status: Active Protocol: Document 04/06/22 15:16 [facility] (Rec: 04/06/22 16:17 [facility] [id number]) Physical Therapy Assessment Goals Three Impairment pain Impairment function-limiting pain at 6/10 today, increases with increase in activity Principal Software Engineer Goal (LTG) Patient able to resume prior level of function with pain no greater than 3/10 LTG Duration 05/22/22 Two Impairment no regular exercise program, spends most of day in bed Impairment decreased soft tissue mobility , strength, flexibility Principal Software Engineer Goal (LTG) patient to be independent and compliant with a HEP with emphasis on walking program, flexibility, and strengthening for long-term fitness and pain management LTG Duration 05/22/22 One Impairment decreased activity tolerance due to LBP Impairment Oswestry disability index score 38% Prison Goal (LTG) Decrease Oswestry Disability Index score to no greater than 10% as measure of improved activity tolerance and function in the home and community LTG Duration 05/22/22 Assessment Summary Assessment Patient compliance to HEP or walking program low, patient excited by exercise routine found online, some of which are in his HEP. Discussed online ex program and instructed in some of ex as above with good tolerance. Patient to print off to bring for further review and instruction. Encouraged increased HEP complince. Physical Therapy Plan Frequency and Duration Frequency of Treatment 2x/Week Duration of Treatment 8 weeks Plan of Care Start Date 03/23/22 Plan of Care End Date 05/22/22 Therapeutic Interventions Therapeutic Interventions Aquatic Therapy,Home Exercise Program,Manual Therapy, Neuromuscular Re-education, Patient/Caregiver Education, Self-Care/Home Management,Soft Tissue Mobilization,Taping, Therapeutic Activities, Therapeutic Exercises Modalities Electric Stimulation,Hot Packs ,Ultrasound Next Visit Focus/Plan Next Note Type Treatment Note Next Visit Plan Assess tolerance for last session, review patient ex program print-out for safe performance and tolerance. Add sidestepping with theraband for core stab.
--- NOTE | 2022-04-08 16:03 | PT.OTN ---
Current Diagnoses Scoliosis, unspecified (04/08/22) Other spondylosis with radiculopathy, lumbosacral region (04/08/22) Weakness (04/08/22) Physical Therapy Treatment Note PT-OP-A Visit Information Start: 03/15/22 17:25 Freq: Status: Active Protocol: Document 04/08/22 15:16 [facility]AK (Rec: 04/08/22 16:03 [facility] [id number]) Out-Patient Physical Therapy Visit Information Visit Information Visit Type Treatment Note Visit Note States he did some exercises, didn't get out for a walk yet , taking care of his . Visit Start Time 15:15 Visit Stop Time 16:10 Total Visit Minutes 55 Visit Number 5 Evaluation Information Evaluation Date 03/23/22 Precautions Precautions chronic pain extremely [place] PT-OP-B Current Condition Start: 03/15/22 17:25 Freq: Status: Active Protocol: Document 04/08/22 15:16 [facility]AK (Rec: 04/08/22 16:03 [facility] [id number]) Current Condition History of Current Condition Onset Date 1953 Current Complaints low back pain History of Current Condition Pain after coming back from [place] War, then 1974 increase pain after heavy lifting of bags of sand, worked it out. Periodically in following years would have pain but able to walk it out. 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 Not as active over the past 10 years due to caring for his who was suffering from depression, PTSD and severe LBP. Currently activity level very low, daily extrememly short walks with dog. Reports he and his have been spending the majority of time in bed, no regular activity level. States he would like 2 or 3 important exercises to focus on. States he uses Kratom Maengdae supplement otherwise I wouldn't be able to get out of bed in the morning. 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 Prior Treatments and Tests x-rays: reports scoliosis, no report or images Future Testing and Treatments Planned none planned beyond PT at this time Treatment Goals Patient/Caregiver Goals minimize pain, improve his strength and activity level/ tolerance PT-OP-C Subjective Start: 03/15/22 17:25 Freq: Status: Active Protocol: Document 03/30/22 15:16 [facility]AK (Rec: 03/30/22 16:11 [facility] [id number]) OP-PT Subjective Patient Comments Patient Comments Trying to spend more time outside of the bed. not exercising as much as I should , haven't started taking walks yet as recommended. States he used to do TM ( transendental meditationl), having a hard time getting back to it. PT-OP-G Mobility & Gait Start: 03/15/22 17:25 Freq: Status: Active Protocol: Document 03/23/22 15:15 [facility]AK (Rec: 03/25/22 16:07 [facility] [id number]) OP Gait Assessment Gait Gait Assistance Required: Independent Assistive Devices Assistive Device None Gait Deviations General Gait Pattern Flexed Trunk,Lateral Trunk Lean,Wide Based Gait Factors Limiting Gait Function Factors Limiting Gait Function Decreased Activity Tolerance, Limited Range of Motion,Pain PT-OP-H Neuro Start: 03/15/22 17:25 Freq: Status: Active Protocol: Document 03/23/22 15:15 [facility]AK (Rec: 03/25/22 16:07 [facility] [id number]) Sensation Evaluation Gross Sensation Gross Sensation WNL PT-OP-J Posture/Palpation/Skin Start: 03/15/22 17:25 Freq: Status: Active Protocol: Document 03/23/22 15:15 [facility] (Rec: 03/25/22 16:07 [facility] [id number]) Posture Evaluation Position Standing T-Spine Posture Fixed Scoliosis on (L),Fixed Scoliosis on (R),Increased Kyphosis L-Spine Posture Flattened Shoulder Posture (L) Rounded,(R) Rounded Scapula Posture (L) Protracted,(R) Protracted Arm Posture (L) Internally Rotated,(R) Internally Rotated Hip Posture (L) Externally Rotated,(R) Externally Rotated Knee Posture (L) Genu Varus,(R) Genu Varus Ankle/Foot Posture (L) Pronated,(R) Pronated Palpation Assessment Location lumbar paraspinals Palpation Findings Soft Tissue Tightness PT-OP-K Range of Motion Start: 03/15/22 17:25 Freq: Status: Active Protocol: Document 03/23/22 15:15 [facility] (Rec: 03/25/22 16:07 [facility] [id number]) Lumbar Spine Range of Motion Lumbar Spine Active Testing Position Standing Flexion 40 Extension 0 Rotation Left 15 Rotation Right 15 Lateral Flexion Left 20 Lateral Flexion Right 20 ROM Limitations Soft Tissue Tightness PT-OP-L Special Tests Start: 03/15/22 17:25 Freq: Status: Active Protocol: Document 03/23/22 15:15 [facility] (Rec: 03/25/22 16:07 [facility] [id number]) Special Tests Lumbar Spine Special Tests Slump Test Results negative Straight Leg Raise Test Results negative Comments muscle tightness only facet syndrome test Test Results positive Standing Flexion Test Results positive PT-OP-M Strength Start: 03/15/22 17:25 Freq: Status: Active Protocol: Document 03/23/22 15:15 [facility] (Rec: 03/25/22 16:07 [facility] [id number]) Trunk Strength Trunk Manual Muscle Testing Flexion 4- Good- Extension 4- Good- Hip Strength Hip Manual Muscle Testing jessica Flexion (L2) 4 Good Extension (S1) 3+ Fair+ Abduction 4- Good- External Rotation 3+ Fair+ Internal Rotation 4- Good- Knee Strength Knee Manual Muscle Testing jessica Flexion (S2) 4+ Good+ Extension (L3) 4+ Good+ Ankle/Foot Strength Ankle and Foot Manual Muscle Testing jessica Dorsiflexion (L4) 4+ Good+ Plantarflexion (S1) 4+ Good+ PT-OP-Q Treatments Start: 03/15/22 17:25 Freq: Status: Active Protocol: Document 04/08/22 15:16 [facility] (Rec: 04/08/22 16:03 [facility] [id number]) Cardio Equipment Recumbent Stepper (Sci-Fit) Duration (Minutes) 10 Resistance 2 Seat Position 12 Therapeutic Exercises Supine Exercises TrA with bridge Reps/Minutes 15x Comments cues for core activation Sitting Exercises HS stretch Reps/Minutes 2x30 trunk rotation Reps/Minutes 3x5 seated cat/cow Reps/Minutes 5x lateral trunk stretch Reps/Minutes 3x5 Comments arm overhead overhead stretch Reps/Minutes 3x5 Comments with deep breath march Reps/Minutes 10 Comments emphasis on upright posture and core stab TrA Reps/Minutes 5x piriformis stretch Equipment Used chair Reps/Minutes 2x30 Comments ankle across knee push down, then knee to opp should sit to stand Sitting Exercise Name hip hinge Reps/Minutes 10x Comments cues for no UE support Standing Exercises sidestepping Equipment Used L1 TB held in hands Reps/Minutes 10x ea direction Comments cues for core stab hip abduction Equipment Used parallel bars; UE support as needed for balance Reps/Minutes 10x Comments cues for small motion, feet straight forward, upright posture good mornings Reps/Minutes 10x Shld ext Resistance L1 TB Reps/Minutes 12x Comments cues for core activation Row Resistance L1 TB Reps/Minutes 12x Comments cues for core activation Therapeutic Activity Therapeutic Activity walking Reps/Minutes 7 min Comments outside, cues for postural correction, core activation PT-OP-R Modalities Start: 03/15/22 17:25 Freq: Status: Active Protocol: Document 04/08/22 15:16 [facility] (Rec: 04/08/22 16:03 [facility] [id number]) Hot Pack/Cold Pack Treatment Hot Pack Location lumbar spine Patient Position Hooklying Treatment Duration (minutes) 15 Patient Tolerance Good PT-OP-T Assessment and Plan Start: 03/15/22 17:25 Freq: Status: Active Protocol: Document 04/08/22 15:16 [facility] (Rec: 04/08/22 16:03 [facility] [id number]) Physical Therapy Assessment Goals Three Impairment pain Impairment function-limiting pain at 6/10 today, increases with increase in activity Intermediate Goal (LTG) Patient able to resume prior level of function with pain no greater than 3/10 LTG Duration 05/22/22 Two Impairment no regular exercise program, spends most of day in bed Impairment decreased soft tissue mobility , strength, flexibility Oyster Preparer Goal (LTG) patient to be independent and compliant with a HEP with emphasis on walking program, flexibility, and strengthening for long-term fitness and pain management LTG Duration 05/22/22 One Impairment decreased activity tolerance due to LBP Impairment Oswestry disability index score 38% Intermediate Goal (LTG) Decrease Oswestry Disability Index score to no greater than 10% as measure of improved activity tolerance and function in the home and community LTG Duration 05/22/22 Assessment Summary Assessment Good tolerance for increased length of walk, improved steadiness and speed with sit to stands. Patient unable to print out online ex program yet. Demonstrating improved understanding of exercises and states feels energized by them, has to figure out how to get them done at home. Physical Therapy Plan Frequency and Duration Frequency of Treatment 2x/Week Duration of Treatment 8 weeks Plan of Care Start Date 03/23/22 Plan of Care End Date 05/22/22 Therapeutic Interventions Therapeutic Interventions Aquatic Therapy,Home Exercise Program,Manual Therapy, Neuromuscular Re-education, Patient/Caregiver Education, Self-Care/Home Management,Soft Tissue Mobilization,Taping, Therapeutic Activities, Therapeutic Exercises Modalities Electric Stimulation,Hot Packs ,Ultrasound Next Visit Focus/Plan Next Note Type Treatment Note Next Visit Plan Review patient online ex program print-out if brings. Continue to progress therapeutic exercise program with emphasis on strengthening , flexibility, and pain management.
--- NOTE | 2022-04-20 13:55 | PT-OP ANOTE ---
patient cancelled due to needing to stay with his , reporting she was in too much physical and emotional pain for him to leave her alone and come to PT.
--- NOTE | 2022-04-26 16:03 | PT.OTN ---
Current Diagnoses Scoliosis, unspecified (04/26/22) Other spondylosis with radiculopathy, lumbosacral region (04/26/22) Weakness (04/26/22) Physical Therapy Treatment Note PT-OP-A Visit Information Start: 03/15/22 17:25 Freq: Status: Active Protocol: Document 04/26/22 15:15 SAK (Rec: 04/26/22 16:03 SAK [id number]) Out-Patient Physical Therapy Visit Information Visit Information Visit Type Treatment Note Visit Start Time 15:15 Visit Stop Time 16:10 Total Visit Minutes 55 Visit Number 6 Evaluation Information Evaluation Date 03/23/22 Precautions Precautions chronic pain extremely [place] PT-OP-B Current Condition Start: 03/15/22 17:25 Freq: Status: Active Protocol: Document 04/08/22 15:16 SAK (Rec: 04/08/22 16:03 SAK [id number]) Current Condition History of Current Condition Onset Date 1953 Current Complaints low back pain History of Current Condition Pain after coming back from [place] War, then 1974 increase pain after heavy lifting of bags of sand, worked it out. Periodically in following years would have pain but able to walk it out. 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 Not as active over the past 10 years due to caring for his who was suffering from depression, PTSD and severe LBP. Currently activity level very low, daily extrememly short walks with dog. Reports he and his have been spending the majority of time in bed, no regular activity level. States he would like 2 or 3 important exercises to focus on. States he uses Kratom Maengdae supplement otherwise I wouldn't be able to get out of bed in the morning. 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 Prior Treatments and Tests x-rays: reports scoliosis, no report or images Future Testing and Treatments Planned none planned beyond PT at this time Treatment Goals Patient/Caregiver Goals minimize pain, improve his strength and activity level/ tolerance PT-OP-C Subjective Start: 03/15/22 17:25 Freq: Status: Active Protocol: Document 04/26/22 15:15 SAK (Rec: 04/26/22 16:03 SAK [id number]) OP-PT Subjective Patient Comments Patient Comments Doing exercises lilliana you, hasn't gotten any 5 min walks in, maybe 1-2, just haven't been doing it; have to spend time with his . PT-OP-G Mobility & Gait Start: 03/15/22 17:25 Freq: Status: Active Protocol: Document 03/23/22 15:15 SAK (Rec: 03/25/22 16:07 [facility] [id number]) OP Gait Assessment Gait Gait Assistance Required: Independent Assistive Devices Assistive Device None Gait Deviations General Gait Pattern Flexed Trunk,Lateral Trunk Lean,Wide Based Gait Factors Limiting Gait Function Factors Limiting Gait Function Decreased Activity Tolerance, Limited Range of Motion,Pain PT-OP-H Neuro Start: 03/15/22 17:25 Freq: Status: Active Protocol: Document 03/23/22 15:15 SAK (Rec: 03/25/22 16:07 [facility] [id number]) Sensation Evaluation Gross Sensation Gross Sensation WNL PT-OP-J Posture/Palpation/Skin Start: 03/15/22 17:25 Freq: Status: Active Protocol: Document 03/23/22 15:15 [facility] (Rec: 03/25/22 16:07 [facility] [id number]) Posture Evaluation Position Standing T-Spine Posture Fixed Scoliosis on (L),Fixed Scoliosis on (R),Increased Kyphosis L-Spine Posture Flattened Shoulder Posture (L) Rounded,(R) Rounded Scapula Posture (L) Protracted,(R) Protracted Arm Posture (L) Internally Rotated,(R) Internally Rotated Hip Posture (L) Externally Rotated,(R) Externally Rotated Knee Posture (L) Genu Varus,(R) Genu Varus Ankle/Foot Posture (L) Pronated,(R) Pronated Palpation Assessment Location lumbar paraspinals Palpation Findings Soft Tissue Tightness PT-OP-K Range of Motion Start: 03/15/22 17:25 Freq: Status: Active Protocol: Document 03/23/22 15:15 SAK (Rec: 03/25/22 16:07 [facility] [id number]) Lumbar Spine Range of Motion Lumbar Spine Active Testing Position Standing Flexion 40 Extension 0 Rotation Left 15 Rotation Right 15 Lateral Flexion Left 20 Lateral Flexion Right 20 ROM Limitations Soft Tissue Tightness PT-OP-L Special Tests Start: 03/15/22 17:25 Freq: Status: Active Protocol: Document 03/23/22 15:15 SAK (Rec: 03/25/22 16:07 [facility] [id number]) Special Tests Lumbar Spine Special Tests Slump Test Results negative Straight Leg Raise Test Results negative Comments muscle tightness only facet syndrome test Test Results positive Standing Flexion Test Results positive PT-OP-M Strength Start: 03/15/22 17:25 Freq: Status: Active Protocol: Document 03/23/22 15:15 [facility] (Rec: 03/25/22 16:07 [facility] [id number]) Trunk Strength Trunk Manual Muscle Testing Flexion 4- Good- Extension 4- Good- Hip Strength Hip Manual Muscle Testing jessica Flexion (L2) 4 Good Extension (S1) 3+ Fair+ Abduction 4- Good- External Rotation 3+ Fair+ Internal Rotation 4- Good- Knee Strength Knee Manual Muscle Testing jessica Flexion (S2) 4+ Good+ Extension (L3) 4+ Good+ Ankle/Foot Strength Ankle and Foot Manual Muscle Testing jessica Dorsiflexion (L4) 4+ Good+ Plantarflexion (S1) 4+ Good+ PT-OP-Q Treatments Start: 03/15/22 17:25 Freq: Status: Active Protocol: Document 04/26/22 15:15 [facility] (Rec: 04/26/22 16:03 [facility] [id number]) Cardio Equipment Recumbent Stepper (Sci-Fit) Duration (Minutes) 10 Resistance 2 Seat Position 12 Other 50-60 rpm, 1.26 miles. Therapeutic Exercises Supine Exercises SLR Reps/Minutes 12x bridge Reps/Minutes 15x Sidelying Exercises hip abduction Reps/Minutes 10x Comments cues for LE alignment, core activation Sitting Exercises HS stretch Reps/Minutes 2x30 sit to stand Sitting Exercise Name hip hinge Reps/Minutes 10x Comments cues for no UE support, overhead reach Standing Exercises wall push up Reps/Minutes 12 lateral trunk stretch Reps/Minutes 2x5 good mornings Reps/Minutes 10x Shld ext Resistance L2 TB Reps/Minutes 12x Comments cues for core activation Row Resistance L2 TB Reps/Minutes 12x Comments cues for core activation Therapeutic Activity Therapeutic Activity walking Reps/Minutes 8 min Comments outside, cues for postural correction, core activation Self-Care/Home Management Treatment Education Other Education strategies for working exercise into his day; doing with , take puppy for walk with . Included new supine and sidelying ex. updated written HEP PT-OP-R Modalities Start: 03/15/22 17:25 Freq: Status: Active Protocol: Document 04/26/22 15:15 [facility] (Rec: 04/26/22 16:03 [facility] [id number]) Hot Pack/Cold Pack Treatment Hot Pack Location lumbar spine Patient Position Hooklying Treatment Duration (minutes) 15 Patient Tolerance Good PT-OP-T Assessment and Plan Start: 03/15/22 17:25 Freq: Status: Active Protocol: Document 04/26/22 15:15 [facility] (Rec: 04/26/22 16:03 [facility] [id number]) Physical Therapy Assessment Goals Three Impairment pain Impairment function-limiting pain at 6/10 today, increases with increase in activity Fire And Safety Helper Goal (LTG) Patient able to resume prior level of function with pain no greater than 3/10 LTG Duration 05/22/22 Two Impairment no regular exercise program, spends most of day in bed Impairment decreased soft tissue mobility , strength, flexibility Mcfp Goal (LTG) patient to be independent and compliant with a HEP with emphasis on walking program, flexibility, and strengthening for long-term fitness and pain management LTG Duration 05/22/22 One Impairment decreased activity tolerance due to LBP Impairment Oswestry disability index score 38% Mcfp Goal (LTG) Decrease Oswestry Disability Index score to no greater than 10% as measure of improved activity tolerance and function in the home and community LTG Duration 05/22/22 Progress Towards Goals Progress Towards Goals Progressing Toward Goals Assessment Summary Assessment Patient demonstrating improved tolerance for walking with less c/o LBP, good tolerance for SLR, increased reps with bridge, and addition of sidelying hip abduction (all ex he could do while laying down with ). Added standing wall push up with cues for neutral spine. Physical Therapy Plan Frequency and Duration Frequency of Treatment 2x/Week Duration of Treatment 8 weeks Plan of Care Start Date 03/23/22 Plan of Care End Date 05/22/22 Therapeutic Interventions Therapeutic Interventions Aquatic Therapy,Home Exercise Program,Manual Therapy, Neuromuscular Re-education, Patient/Caregiver Education, Self-Care/Home Management,Soft Tissue Mobilization,Taping, Therapeutic Activities, Therapeutic Exercises Modalities Electric Stimulation,Hot Packs ,Ultrasound Next Visit Focus/Plan Next Note Type Treatment Note Next Visit Plan Continue patient education regarding increased HEP participation and modification to allow them to be done in room while spending time with .
--- NOTE | 2022-05-03 17:34 | PT.OTN ---
Current Diagnoses Scoliosis, unspecified (05/03/22) Other spondylosis with radiculopathy, lumbosacral region (05/03/22) Weakness (05/03/22) Physical Therapy Treatment Note PT-OP-A Visit Information Start: 03/15/22 17:25 Freq: Status: Active Protocol: Document 05/03/22 08:55 SAK (Rec: 05/03/22 09:02 SAK [id number]) Out-Patient Physical Therapy Visit Information Visit Information Visit Type Treatment Note Visit Start Time 08:15 Visit Stop Time 09:10 Total Visit Minutes 55 Visit Number 7 Evaluation Information Evaluation Date 03/23/22 Precautions Precautions chronic pain extremely [place] PT-OP-B Current Condition Start: 03/15/22 17:25 Freq: Status: Active Protocol: Document 04/08/22 15:16 SAK (Rec: 04/08/22 16:03 SAK [id number]) Current Condition History of Current Condition Onset Date 1953 Current Complaints low back pain History of Current Condition Pain after coming back from [place] War, then 1974 increase pain after heavy lifting of bags of sand, worked it out. Periodically in following years would have pain but able to walk it out. 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 Not as active over the past 10 years due to caring for his who was suffering from depression, PTSD and severe LBP. Currently activity level very low, daily extrememly short walks with dog. Reports he and his have been spending the majority of time in bed, no regular activity level. States he would like 2 or 3 important exercises to focus on. States he uses Kratom Maengdae supplement otherwise I wouldn't be able to get out of bed in the morning. 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 Prior Treatments and Tests x-rays: reports scoliosis, no report or images Future Testing and Treatments Planned none planned beyond PT at this time Treatment Goals Patient/Caregiver Goals minimize pain, improve his strength and activity level/ tolerance PT-OP-C Subjective Start: 03/15/22 17:25 Freq: Status: Active Protocol: Document 05/03/22 08:55 SAK (Rec: 05/03/22 09:02 SAK [id number]) OP-PT Subjective Patient Comments Patient Comments Feeling a little stronger, doing some of the exercises. Out of his CBD product, back more sore today. States he understands his exercises and would like to be discharged today; has 1 further appointment scheduled but is not with this PT and he feels ready for discharge. PT-OP-G Mobility & Gait Start: 03/15/22 17:25 Freq: Status: Active Protocol: Document 03/23/22 15:15 [facility] (Rec: 03/25/22 16:07 [facility] [id number]) OP Gait Assessment Gait Gait Assistance Required: Independent Assistive Devices Assistive Device None Gait Deviations General Gait Pattern Flexed Trunk,Lateral Trunk Lean,Wide Based Gait Factors Limiting Gait Function Factors Limiting Gait Function Decreased Activity Tolerance, Limited Range of Motion,Pain PT-OP-H Neuro Start: 03/15/22 17:25 Freq: Status: Active Protocol: Document 03/23/22 15:15 [facility] (Rec: 03/25/22 16:07 [facility] [id number]) Sensation Evaluation Gross Sensation Gross Sensation WNL PT-OP-J Posture/Palpation/Skin Start: 03/15/22 17:25 Freq: Status: Active Protocol: Document 03/23/22 15:15 [facility] (Rec: 03/25/22 16:07 [facility] [id number]) Posture Evaluation Position Standing T-Spine Posture Fixed Scoliosis on (L),Fixed Scoliosis on (R),Increased Kyphosis L-Spine Posture Flattened Shoulder Posture (L) Rounded,(R) Rounded Scapula Posture (L) Protracted,(R) Protracted Arm Posture (L) Internally Rotated,(R) Internally Rotated Hip Posture (L) Externally Rotated,(R) Externally Rotated Knee Posture (L) Genu Varus,(R) Genu Varus Ankle/Foot Posture (L) Pronated,(R) Pronated Palpation Assessment Location lumbar paraspinals Palpation Findings Soft Tissue Tightness PT-OP-K Range of Motion Start: 03/15/22 17:25 Freq: Status: Active Protocol: Document 03/23/22 15:15 [facility] (Rec: 03/25/22 16:07 [facility] [id number]) Lumbar Spine Range of Motion Lumbar Spine Active Testing Position Standing Flexion 40 Extension 0 Rotation Left 15 Rotation Right 15 Lateral Flexion Left 20 Lateral Flexion Right 20 ROM Limitations Soft Tissue Tightness PT-OP-L Special Tests Start: 03/15/22 17:25 Freq: Status: Active Protocol: Document 03/23/22 15:15 [facility] (Rec: 03/25/22 16:07 [facility] [id number]) Special Tests Lumbar Spine Special Tests Slump Test Results negative Straight Leg Raise Test Results negative Comments muscle tightness only facet syndrome test Test Results positive Standing Flexion Test Results positive PT-OP-M Strength Start: 03/15/22 17:25 Freq: Status: Active Protocol: Document 03/23/22 15:15 [facility] (Rec: 03/25/22 16:07 [facility] [id number]) Trunk Strength Trunk Manual Muscle Testing Flexion 4- Good- Extension 4- Good- Hip Strength Hip Manual Muscle Testing jessica Flexion (L2) 4 Good Extension (S1) 3+ Fair+ Abduction 4- Good- External Rotation 3+ Fair+ Internal Rotation 4- Good- Knee Strength Knee Manual Muscle Testing jessica Flexion (S2) 4+ Good+ Extension (L3) 4+ Good+ Ankle/Foot Strength Ankle and Foot Manual Muscle Testing jessica Dorsiflexion (L4) 4+ Good+ Plantarflexion (S1) 4+ Good+ PT-OP-Q Treatments Start: 03/15/22 17:25 Freq: Status: Active Protocol: Document 05/03/22 08:55 [facility] (Rec: 05/03/22 09:02 [facility] [id number]) Cardio Equipment Recumbent Stepper (Sci-Fit) Duration (Minutes) 10 Resistance 2 Seat Position 12 Other 50-60 rpm, 1.28 miles. Therapeutic Exercises Supine Exercises SLR Reps/Minutes 12x bridge Reps/Minutes 15x Sidelying Exercises hip abduction Reps/Minutes 10x Comments cues for LE alignment, core activation Sitting Exercises HS stretch Reps/Minutes 2x30 trunk rotation Reps/Minutes 3x5 piriformis stretch Equipment Used chair Reps/Minutes 2x30 Comments ankle across knee push down, then knee to opp should sit to stand Sitting Exercise Name hip hinge Reps/Minutes 10x2 Comments cues for no UE support, overhead reach Standing Exercises wall push up Reps/Minutes 15 lateral trunk stretch Reps/Minutes 2x5 Shld ext Resistance L2 TB Reps/Minutes 12x Comments cues for core activation Therapeutic Activity Therapeutic Activity walking Reps/Minutes 8.5 min Comments outside, cues for postural correction, core activation Self-Care/Home Management Treatment Education Other Education strategies for working exercise into his day; doing with , take puppy for walk with . Importance of regular exercises. PT-OP-R Modalities Start: 03/15/22 17:25 Freq: Status: Active Protocol: Document 05/03/22 08:55 [facility] (Rec: 05/03/22 09:02 [facility] [id number]) Hot Pack/Cold Pack Treatment Hot Pack Location lumbar spine Patient Position Hooklying Treatment Duration (minutes) 15 Patient Tolerance Good PT-OP-T Assessment and Plan Start: 03/15/22 17:25 Freq: Status: Active Protocol: Document 05/03/22 08:55 [facility] (Rec: 05/03/22 09:02 [facility] [id number]) Physical Therapy Assessment Goals Three Impairment pain Impairment function-limiting pain at 6/10 today, increases with increase in activity Alf Goal (LTG) Patient able to resume prior level of function with pain no greater than 3/10 05/03/22: good progress LTG Duration 05/22/22 Two Impairment no regular exercise program, spends most of day in bed Impairment decreased soft tissue mobility , strength, flexibility Scrap Drop Engineer Goal (LTG) patient to be independent and compliant with a HEP with emphasis on walking program, flexibility, and strengthening for long-term fitness and pain management 05/03/22: patient is independent with HEP, fair compliance, improved tolerance for walking during PT sessions but not doing at home . LTG Duration 05/22/22 One Impairment decreased activity tolerance due to LBP Impairment Oswestry disability index score 38% Scrap Drop Engineer Goal (LTG) Decrease Oswestry Disability Index score to no greater than 10% as measure of improved activity tolerance and function in the home and community 05/03/22: goal progress. Patient reports he will continue to do HEP and use CBD product LTG Duration 05/22/22 Physical Therapy Plan Discharge Physical Therapy Discharge Reasons Patient Request Discharge Comments goal progress as above, patient requests discharge from PT.
== END 2022-07-05 13:14 ==
LOC: PHYS 08:15
PROVIDERS: Family Provider Student in an Organized Health Care Education/Training Program; PCP Student in an Organized Health Care Education/Training Program; Referring Provider Student in an Organized Health Care Education/Training Program; Visit Provider Student in an Organized Health Care Education/Training Program
DX: M47.27 Other spondylosis with radiculopathy, lumbosacral region (principal); M41.9 Scoliosis, unspecified; R53.1 Weakness
CPT/HCPCS: 97110; 97162; 97535

== ENCOUNTER → 2022-08-11 11:00 | Outpatient (CLI) | payer OTHER, SELFPAY ==
[2022-08-11 13:43] LABS: BUN Creatinine Ratio 24.8 (6-22); Blood Urea Nitrogen 40 mg/dL (9-20); Calcium 9.1 mg/dL (8.4-10.2); Carbon Dioxide 26 mmol/L (22-32); Chloride 103 mmol/L (98-107); Estimated Glomerular Filt Rate 41 mL/min (>60); Glucose 94 mg/dL (80-110); HEMOLYSIS < 15 (0-50); Potassium 5.4 mmol/L (3.4-5.1); Sodium 137 mmol/L (137-145)
[2022-08-11 14:12] LABS: Prostate Specific Antigen 6.78 ng/mL (0.10-4.00)
== END ==
PROVIDERS: Family Provider Student in an Organized Health Care Education/Training Program; PCP Student in an Organized Health Care Education/Training Program; Referring Provider Student in an Organized Health Care Education/Training Program; Visit Provider Student in an Organized Health Care Education/Training Program
DX: R97.20 Elevated prostate specific antigen [PSA] (principal); I10 Essential (primary) hypertension
CPT/HCPCS: 36415; 80048; 84153

== ENCOUNTER 2023-05-26 13:45 | Outpatient (RCR) | payer OTHER, SELFPAY ==
--- NOTE | 2023-04-12 11:44 | PT.OIE ---
Current Diagnoses Other spondylosis with radiculopathy, lumbosacral region (04/12/23) Spondylosis, unspecified (04/12/23) Past Medical History (Last Reviewed 02/26/20 @ 11:18 by Chaim Harrison DO) Atrial fibrillation Bladder tumor Bladder tumor COPD (chronic obstructive pulmonary disease) History of seizures (~2008) Lumbar spine pain Subdural hematoma Past Surgical History (Last Updated 07/16/18 @ 09:32 by Jo Ann Sosa MD) History of bladder surgery Visit Care Team Role Provider Type Chalo Baugh MD Attending Provider Physician Family Provider Primary Care Provider Referring Provider Specialty: Internal Medicine Address: [address] [place] [address], [address], [facility] Email: [email or web address] Physical Therapy Initial Evaluation PT-OP-A Visit Information Start: 04/12/23 08:17 Freq: Status: Active Protocol: Document 04/12/23 08:22 ES (Rec: 04/12/23 09:16 ES [id number]) Out-Patient Physical Therapy Visit Information Visit Information Visit Type Initial Evaluation Visit Start Time 08:31 Visit Stop Time 09:16 Total Visit Minutes 45 Visit Number 1 Evaluation Information Evaluation Date 04/12/23 PT-OP-B Current Condition Start: 04/12/23 08:17 Freq: Status: Active Protocol: Document 04/12/23 08:22 ES (Rec: 04/12/23 09:16 ES [id number]) Current Condition History of Current Condition Current Complaints Back pain History of Current Condition Patient reports he has had pain for many years. 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 When he was working his back did fine, but has not been as active lately because he states his is dealing with depression and they stay inside a lot. Takes the dog out only for a few minutes at a time. States his notices he's more bent over. Has had PT in the past for cardiopulmonary rehab and wants to start that again; isn 't sure he wants to continue with therapy for his back because he was given exercises for it by PT in the past but didn't follow up at home and doesn't think he will do anything at home. 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 PT-OP-C Subjective Start: 04/12/23 08:17 Freq: Status: Active Protocol: Document 04/12/23 08:22 ES (Rec: 04/12/23 09:16 ES [id number]) Patient Questionnaires Oswestry Low Back Index Oswestry Score 42 Oswestry Impairment 40 to 59% Impaired (Score 40- 59) OP-PT Pain Assessment Location Low back Pain Location Details Central lower back Scale Used Worst 8-9/10, best 1/10, average 4-5/10 Description Dull Frequency Constant Radiating Location Lateral to spine, B Variations/Patterns Worst in the AM, better in the evening/after medication Pain Aggravating Factors Standing,Lifting Other Pain Aggravating Factors Picking up small dog, putting on bathrobe. Standing limited to <5 minutes. Pain Alleviating Factors Heat,Medication,Lying Supine, Sitting Patient Stated Pain Goal 2-4/10 PT-OP-J Posture/Palpation/Skin Start: 04/12/23 08:17 Freq: Status: Active Protocol: Document 04/12/23 08:22 ES (Rec: 04/12/23 11:43 ES [id number]) Posture Evaluation Comments Posture Comments Scoliosis with L lumbar concavity, R lower rib hump, L iliac crest high, posterior pelvic tilt. PT-OP-K Range of Motion Start: 04/12/23 08:17 Freq: Status: Active Protocol: Document 04/12/23 08:22 ES (Rec: 04/12/23 11:43 ES [id number]) Lumbar Spine Range of Motion Lumbar Spine Active Percentage Testing Position Standing ROM Limitations Soft Tissue Tightness,Bony Restriction Comments Limited lumbar ROM all directions, painful with extension, no pain with flexion. PT-OP-L Special Tests Start: 04/12/23 08:17 Freq: Status: Active Protocol: Document 04/12/23 08:22 ES (Rec: 04/12/23 11:43 ES [id number]) Special Tests Lumbar Spine Special Tests Squat Test Results Trunk flexion, difficult to perform Bridge Test Results Limited range, difficult to perform Active SLR Test Results Pelvic rotation, increased pain/pressure with B testing PT-OP-M Strength Start: 04/12/23 08:17 Freq: Status: Active Protocol: Document 04/12/23 08:22 ES (Rec: 05/30/23 11:43 ES [id number]) Trunk Strength Trunk Manual Muscle Testing Testing Position Supine Flexion 3- Fair- PT-OP-T Assessment and Plan Start: 04/12/23 08:17 Freq: Status: Active Protocol: Document 04/12/23 08:22 ES (Rec: 04/12/23 11:43 ES [id number]) Physical Therapy Assessment Rehab Potential Rehabilitation Potential Fair Evaluation Complexity Number of Personal Factors/Comorbidities 1-2 Number of Body Systems Impaired 1-2 Clinical Presentation at Evaluation Stable Impairments Impairments Activity Tolerance,Functional Activities,Pain,Posture,ROM, Strength Other Concerns Barriers to Rehabilitation Decreased motivation Goals Three Impairment Activity tolerance Short Term Goal (STG) Patient will be able to lift 15 lbs with correct mechanics without cueing and no increase in pain to be able to lift and carry his dog. STG Duration 4 weeks (05/10/23) Two Impairment Functional activity Nursing Techn Goal (LTG) Patient will be independent with HEP/community exercise program for long-term management of pain and function. LTG Duration 6 weeks (05/24/23) One Impairment Activity tolerance Impairment Standing limited to <5 minutes Group Home Goal (LTG) Patient will be able to tolerate standing for 20 minutes with 5/10 pain or less to be able to better participate in ADL's. LTG Duration 6 weeks (05/24/23) Assessment Summary Assessment Patient is a 88 year old male who presents with lower back pain. He demonstrates scoliosis and decreased core strength. He is functionally limited in his ability to stand and lift objects such as his dog. He admits to a sedentary lifestyle that is contributing to increased pain though also admits to having low motivation to change this due to taking care of his . I had a thorough discussion with Yovany regarding the benefits of regular exercise such as walking to improve his health including back pain, and the importance of an exercise program beyond his PT sessions as well as provided resources for community exercise classes. Patient will benefit from skilled PT to instruct in HEP to address general fitness and mobility and core/hip strengthening, and for instruction in correct lifting mechanics to reduce pain with ADL's. Physical Therapy Plan Frequency and Duration Frequency of Treatment 1x/Week Duration of treatment (weeks) 6 Plan of Care Start Date 04/12/23 Plan of Care End Date 05/24/23 Therapeutic Interventions Therapeutic Interventions Home Exercise Program, Neuromuscular Re-education, Patient/Caregiver Education, Self-Care/Home Management, Therapeutic Activities, Therapeutic Exercises Modalities Hot Packs Next Visit Focus/Plan Next Note Type Treatment Note Next Visit Plan HEP instruction - core and hip strength. Bending/lifting mechanics training.
--- NOTE | 2023-04-12 11:45 | PT.OPPOC ---
Physical, Occupational & Speech Therapy At [facility] Current Diagnoses Other spondylosis with radiculopathy, lumbosacral region (04/12/23) Spondylosis, unspecified (04/12/23) Visit Care Team Role Provider Type Chalo Baugh MD Attending Provider Physician Family Provider Primary Care Provider Referring Provider Specialty: Internal Medicine Address: [address] [place] [address], [address], [facility] Email: [email or web address] Plan Of Care PT-OP-T Assessment and Plan Start: 04/12/23 08:17 Freq: Status: Active Protocol: Document 04/12/23 08:22 ES (Rec: 04/12/23 11:43 ES [id number]) Physical Therapy Assessment Rehab Potential Rehabilitation Potential Fair Evaluation Complexity Number of Personal Factors/Comorbidities 1-2 Number of Body Systems Impaired 1-2 Clinical Presentation at Evaluation Stable Impairments Impairments Activity Tolerance,Functional Activities,Pain,Posture,ROM, Strength Other Concerns Barriers to Rehabilitation Decreased motivation Goals Three Impairment Activity tolerance Short Term Goal (STG) Patient will be able to lift 15 lbs with correct mechanics without cueing and no increase in pain to be able to lift and carry his dog. STG Duration 4 weeks (05/10/23) Two Impairment Functional activity Network Intelligence Analyst Goal (LTG) Patient will be independent with [facility]/community exercise program for long-term management of pain and function. LTG Duration 6 weeks (05/24/23) One Impairment Activity tolerance Impairment Standing limited to <5 minutes Retirement Goal (LTG) Patient will be able to tolerate standing for 20 minutes with 5/10 pain or less to be able to better participate in ADL's. LTG Duration 6 weeks (05/24/23) Assessment Summary Assessment Patient is a 88 year old male who presents with lower back pain. He demonstrates scoliosis and decreased core strength. He is functionally limited in his ability to stand and lift objects such as his dog. He admits to a sedentary lifestyle that is contributing to increased pain though also admits to having low motivation to change this due to taking care of his . I had a thorough discussion with Yovany regarding the benefits of regular exercise such as walking to improve his health including back pain, and the importance of an exercise program beyond his PT sessions as well as provided resources for community exercise classes. Patient will benefit from skilled PT to instruct in HEP to address general fitness and mobility and core/hip strengthening, and for instruction in correct lifting mechanics to reduce pain with ADL's. Physical Therapy Plan Frequency and Duration Frequency of Treatment 1x/Week Duration of treatment (weeks) 6 Plan of Care Start Date 04/12/23 Plan of Care End Date 05/24/23 Therapeutic Interventions Therapeutic Interventions Home Exercise Program, Neuromuscular Re-education, Patient/Caregiver Education, Self-Care/Home Management, Therapeutic Activities, Therapeutic Exercises Modalities Hot Packs Next Visit Focus/Plan Next Note Type Treatment Note Next Visit Plan HEP instruction - core and hip strength. Bending/lifting mechanics training. Plan of Care Dates Plan of Care Start Date 04/12/23 Plan of Care End Date 05/24/23 Electronically Signed by: Carlene Goode, PT 04/12/23 7220 If you are in agreement with this Plan of Care, please return a signed and dated copy. I have reviewed this Plan of Care and certify that the skilled therapy services above are required to meet the patient?s needs. Physician Signature Date Printed Name and Credentials Clinical Instructor Signature Printed Name and Credentials
--- NOTE | 2023-05-12 14:30 | PT.OTN ---
Current Diagnoses Other spondylosis with radiculopathy, lumbosacral region (05/12/23) Spondylosis, unspecified (05/12/23) Physical Therapy Treatment Note PT-OP-A Visit Information Start: 04/12/23 08:17 Freq: Status: Active Protocol: Document 05/12/23 13:47 ES (Rec: 05/12/23 14:30 ES [id number]) Out-Patient Physical Therapy Visit Information Visit Information Visit Type Treatment Note Visit Start Time 13:46 Visit Stop Time 14:18 Total Visit Minutes 32 Visit Number 2 Evaluation Information Evaluation Date 04/12/23 PT-OP-B Current Condition Start: 04/12/23 08:17 Freq: Status: Active Protocol: Document 04/12/23 08:22 ES (Rec: 04/12/23 09:16 ES [id number]) Current Condition History of Current Condition Current Complaints Back pain History of Current Condition Patient reports he has had pain for many years. 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 When he was working his back did fine, but has not been as active lately because he states his is dealing with depression and they stay inside a lot. Takes the dog out only for a few minutes at a time. States his notices he's more bent over. Has had PT in the past for cardiopulmonary rehab and wants to start that again; isn 't sure he wants to continue with therapy for his back because he was given exercises for it by PT in the past but didn't follow up at home and doesn't think he will do anything at home. 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 PT-OP-C Subjective Start: 04/12/23 08:17 Freq: Status: Active Protocol: Document 05/12/23 13:47 ES (Rec: 05/12/23 14:30 ES [id number]) OP-PT Subjective Patient Comments Patient Comments Patient reported that has been dealing with his 's health issues and hasn't been able to attent PT. He started taking 5 min walks but noticed he was bending over a lot, and even had a fall forward. Stopped wearing suspenders and that helped. Has started using a walking stick which also helped a lot with upright posture and balance. Is up to 12 minutes at a time now. Still having trouble straightening up in the morning. PT-OP-J Posture/Palpation/Skin Start: 04/12/23 08:17 Freq: Status: Active Protocol: Document 04/12/23 08:22 ES (Rec: 04/12/23 11:43 ES [id number]) Posture Evaluation Comments Posture Comments Scoliosis with L lumbar concavity, R lower rib hump, L iliac crest high, posterior pelvic tilt. PT-OP-K Range of Motion Start: 04/12/23 08:17 Freq: Status: Active Protocol: Document 04/12/23 08:22 ES (Rec: 04/12/23 11:43 ES [id number]) Lumbar Spine Range of Motion Lumbar Spine Active Percentage Testing Position Standing ROM Limitations Soft Tissue Tightness,Bony Restriction Comments Limited lumbar ROM all directions, painful with extension, no pain with flexion. PT-OP-L Special Tests Start: 04/12/23 08:17 Freq: Status: Active Protocol: Document 04/12/23 08:22 ES (Rec: 04/12/23 11:43 ES [id number]) Special Tests Lumbar Spine Special Tests Squat Test Results Trunk flexion, difficult to perform Bridge Test Results Limited range, difficult to perform Active SLR Test Results Pelvic rotation, increased pain/pressure with B testing PT-OP-M Strength Start: 04/12/23 08:17 Freq: Status: Active Protocol: Document 04/12/23 08:22 ES (Rec: 04/12/23 11:43 ES [id number]) Trunk Strength Trunk Manual Muscle Testing Testing Position Supine Flexion 3- Fair- PT-OP-Q Treatments Start: 04/12/23 08:17 Freq: Status: Active Protocol: Document 05/12/23 13:47 ES (Rec: 05/12/23 14:30 ES [id number]) Therapeutic Exercises Supine Exercises Bridge Reps/Minutes 2x10 Comments HEP Sidelying Exercises Open book Side bilateral Reps/Minutes [id number] Comments Instructed for home Sitting Exercises Sidebend stretch Side bilateral Reps/Minutes [id number] ea side Comments HEP Standing Exercises Pallof press Side bilateral Resistance L3 band Reps/Minutes 2x10 ea side Comments HEP Shoulder extension Side bilateral Resistance L3 band Reps/Minutes 2x10 Comments HEP Row Side bilateral Resistance L3 band Reps/Minutes 2x10 Comments HEP PT-OP-T Assessment and Plan Start: 04/12/23 08:17 Freq: Status: Active Protocol: Document 05/12/23 13:47 ES (Rec: 05/12/23 14:30 ES [id number]) Physical Therapy Assessment Goals Three Impairment Activity tolerance Impairment function-limiting pain at 6/10 today, increases with increase in activity Short Term Goal (STG) Patient will be able to lift 15 lbs with correct mechanics without cueing and no increase in pain to be able to lift and carry his dog. STG Duration 4 weeks (05/10/23) Two Impairment Functional activity Impairment decreased soft tissue mobility , strength, flexibility Stencil Maker Goal (LTG) Patient will be independent with HEP/community exercise program for long-term management of pain and function. LTG Duration 6 weeks (05/24/23) One Impairment Activity tolerance Impairment Standing limited to <5 minutes Halfway Goal (LTG) Patient will be able to tolerate standing for 20 minutes with 5/10 pain or less to be able to better participate in ADL's. LTG Duration 6 weeks (05/24/23) Assessment Summary Assessment Patient tolerated ex's without increase in back pain. He required cues for upright posture throughout. Tends to lean to R due to scoliosis. He will benefit from progression of trunk strengthening ex's to improve upright posture during ambulation. Educated patient to increase walking time by a couple minutes per week as tolerated with the goal of 20 minutes. Physical Therapy Plan Frequency and Duration Frequency of Treatment 1x/Week Duration of treatment (weeks) 6 Plan of Care Start Date 04/12/23 Plan of Care End Date 05/24/23 Therapeutic Interventions Therapeutic Interventions Home Exercise Program, Neuromuscular Re-education, Patient/Caregiver Education, Self-Care/Home Management, Therapeutic Activities, Therapeutic Exercises Modalities Hot Packs Next Visit Focus/Plan Next Note Type Treatment Note Next Visit Plan Review HEP. Instruct in bending/lifting mechanics.
--- NOTE | 2023-05-19 14:33 | PT.OTN ---
Current Diagnoses Other spondylosis with radiculopathy, lumbosacral region (05/19/23) Spondylosis, unspecified (05/19/23) Physical Therapy Treatment Note PT-OP-A Visit Information Start: 04/12/23 08:17 Freq: Status: Active Protocol: Document 05/19/23 13:54 ES (Rec: 05/19/23 14:33 ES [id number]) Out-Patient Physical Therapy Visit Information Visit Information Visit Type Treatment Note Visit Start Time 13:53 Visit Stop Time 14:23 Total Visit Minutes 30 Visit Number 3 Evaluation Information Evaluation Date 04/12/23 PT-OP-B Current Condition Start: 04/12/23 08:17 Freq: Status: Active Protocol: Document 04/12/23 08:22 ES (Rec: 04/12/23 09:16 ES [id number]) Current Condition History of Current Condition Current Complaints Back pain History of Current Condition Patient reports he has had pain for many years. 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 When he was working his back did fine, but has not been as active lately because he states his is dealing with depression and they stay inside a lot. Takes the dog out only for a few minutes at a time. States his notices he's more bent over. Has had PT in the past for cardiopulmonary rehab and wants to start that again; isn 't sure he wants to continue with therapy for his back because he was given exercises for it by PT in the past but didn't follow up at home and doesn't think he will do anything at home. 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 PT-OP-C Subjective Start: 04/12/23 08:17 Freq: Status: Active Protocol: Document 05/19/23 13:54 ES (Rec: 05/19/23 14:33 ES [id number]) OP-PT Subjective Patient Comments Patient Comments Patient stated that he has tried walking longer but had trouble standing upright as he went along. Stated he was able to walk for up to 11 minutes at a time and felt good about it. Has not been doing his other exercises consistently. PT-OP-J Posture/Palpation/Skin Start: 04/12/23 08:17 Freq: Status: Active Protocol: Document 04/12/23 08:22 ES (Rec: 04/12/23 11:43 ES [id number]) Posture Evaluation Comments Posture Comments Scoliosis with L lumbar concavity, R lower rib hump, L iliac crest high, posterior pelvic tilt. PT-OP-K Range of Motion Start: 04/12/23 08:17 Freq: Status: Active Protocol: Document 04/12/23 08:22 ES (Rec: 04/12/23 11:43 ES [id number]) Lumbar Spine Range of Motion Lumbar Spine Active Percentage Testing Position Standing ROM Limitations Soft Tissue Tightness,Bony Restriction Comments Limited lumbar ROM all directions, painful with extension, no pain with flexion. PT-OP-L Special Tests Start: 04/12/23 08:17 Freq: Status: Active Protocol: Document 04/12/23 08:22 ES (Rec: 04/12/23 11:43 ES [id number]) Special Tests Lumbar Spine Special Tests Squat Test Results Trunk flexion, difficult to perform Bridge Test Results Limited range, difficult to perform Active SLR Test Results Pelvic rotation, increased pain/pressure with B testing PT-OP-M Strength Start: 04/12/23 08:17 Freq: Status: Active Protocol: Document 04/12/23 08:22 ES (Rec: 04/12/23 11:43 ES [id number]) Trunk Strength Trunk Manual Muscle Testing Testing Position Supine Flexion 3- Fair- PT-OP-Q Treatments Start: 04/12/23 08:17 Freq: Status: Active Protocol: Document 05/19/23 13:54 ES (Rec: 05/19/23 14:33 ES [id number]) Therapeutic Exercises Supine Exercises Bridge Reps/Minutes x10 Comments HEP Prone Exercises Leg raises Side bilateral Reps/Minutes x10 ea side Arm and leg raises Side bilateral Reps/Minutes x10 ea side Comments HEP Sidelying Exercises Open book Side bilateral Reps/Minutes [id number] Comments Reviewed for home, cued to not hold breath Sitting Exercises STS Sitting Exercise Name Resisted STS Resistance L4 band Reps/Minutes 2x10 Standing Exercises Pallof press Side bilateral Resistance L4 band Reps/Minutes x15 ea side Comments HEP Shoulder extension Side bilateral Resistance L4 band Reps/Minutes x15 Comments HEP Row Side bilateral Resistance L4 band Reps/Minutes x15 Comments HEP PT-OP-T Assessment and Plan Start: 04/12/23 08:17 Freq: Status: Active Protocol: Document 05/19/23 13:54 ES (Rec: 05/19/23 14:33 ES [id number]) Physical Therapy Assessment Impairments Impairments Activity Tolerance,Functional Activities,Pain,Posture,ROM, Strength Goals Three Impairment Activity tolerance Impairment function-limiting pain at 6/10 today, increases with increase in activity Short Term Goal (STG) Patient will be able to lift 15 lbs with correct mechanics without cueing and no increase in pain to be able to lift and carry his dog. STG Duration 4 weeks (05/10/23) Two Impairment Functional activity Impairment decreased soft tissue mobility , strength, flexibility Airport Ramp Supervisor Goal (LTG) Patient will be independent with [facility]/community exercise program for long-term management of pain and function. LTG Duration 6 weeks (05/24/23) One Impairment Activity tolerance Impairment Standing limited to <5 minutes Airport Ramp Supervisor Goal (LTG) Patient will be able to tolerate standing for 20 minutes with 5/10 pain or less to be able to better participate in ADL's. LTG Duration 6 weeks (05/24/23) Assessment Summary Assessment Patient able to progress to L4 band with standing ex's. He tolerated prone extension ex's without increase in pain. He continues to benefit from further posterior chain strengthening to improve standing and walking tolerance . Physical Therapy Plan Frequency and Duration Frequency of Treatment 1x/Week Duration of treatment (weeks) 6 Plan of Care Start Date 04/12/23 Plan of Care End Date 05/24/23 Therapeutic Interventions Therapeutic Interventions Home Exercise Program, Neuromuscular Re-education, Patient/Caregiver Education, Self-Care/Home Management, Therapeutic Activities, Therapeutic Exercises Modalities Hot Packs Next Visit Focus/Plan Next Note Type Treatment Note Next Visit Plan Bending/lifting mechanics training next visit.
--- NOTE | 2023-05-26 15:59 | PT.OTN ---
Current Diagnoses Other spondylosis with radiculopathy, lumbosacral region (05/26/23) Spondylosis, unspecified (05/26/23) Physical Therapy Treatment Note PT-OP-A Visit Information Start: 04/12/23 08:17 Freq: Status: Active Protocol: Document 05/26/23 13:43 ES (Rec: 05/26/23 15:59 ES [id number]) Out-Patient Physical Therapy Visit Information Visit Information Visit Type Discharge Summary Visit Start Time 13:46 Visit Stop Time 14:30 Total Visit Minutes 44 Visit Number 4 Evaluation Information Evaluation Date 04/12/23 PT-OP-B Current Condition Start: 04/12/23 08:17 Freq: Status: Active Protocol: Document 04/12/23 08:22 ES (Rec: 04/12/23 09:16 ES [id number]) Current Condition History of Current Condition Current Complaints Back pain History of Current Condition Patient reports he has had pain for many years. 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 When he was working his back did fine, but has not been as active lately because he states his is dealing with depression and they stay inside a lot. Takes the dog out only for a few minutes at a time. States his notices he's more bent over. Has had PT in the past for cardiopulmonary rehab and wants to start that again; isn 't sure he wants to continue with therapy for his back because he was given exercises for it by PT in the past but didn't follow up at home and doesn't think he will do anything at home. 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 PT-OP-C Subjective Start: 04/12/23 08:17 Freq: Status: Active Protocol: Document 05/26/23 13:43 ES (Rec: 05/26/23 15:59 ES [id number]) OP-PT Subjective Patient Comments Patient Comments Patient stated he feels like the home exercises are very helpful, feels like his flexibility is better. Wants to have cardiopulmonary rehab to work on the endurance in his legs. Maximum walking time the past week was 7 minutes. Able to stand for about 5 minutes before having to lean on his arms/furniture. Patient Questionnaires Oswestry Low Back Index Oswestry Score 32 Oswestry Impairment 20 to 39% Impaired (Score 20- 39) OP-PT Pain Assessment Location Low back Pain Location Details Central lower back Scale Used Worst 7/10, best 1/10, average 4-5/10 PT-OP-J Posture/Palpation/Skin Start: 04/12/23 08:17 Freq: Status: Active Protocol: Document 04/12/23 08:22 ES (Rec: 04/12/23 11:43 ES [id number]) Posture Evaluation Comments Posture Comments Scoliosis with L lumbar concavity, R lower rib hump, L iliac crest high, posterior pelvic tilt. PT-OP-K Range of Motion Start: 04/12/23 08:17 Freq: Status: Active Protocol: Document 04/12/23 08:22 ES (Rec: 04/12/23 11:43 ES [id number]) Lumbar Spine Range of Motion Lumbar Spine Active Percentage Testing Position Standing ROM Limitations Soft Tissue Tightness,Bony Restriction Comments Limited lumbar ROM all directions, painful with extension, no pain with flexion. PT-OP-L Special Tests Start: 04/12/23 08:17 Freq: Status: Active Protocol: Document 04/12/23 08:22 ES (Rec: 04/12/23 11:43 ES [id number]) Special Tests Lumbar Spine Special Tests Squat Test Results Trunk flexion, difficult to perform Bridge Test Results Limited range, difficult to perform Active SLR Test Results Pelvic rotation, increased pain/pressure with B testing PT-OP-M Strength Start: 04/12/23 08:17 Freq: Status: Active Protocol: Document 04/12/23 08:22 ES (Rec: 04/12/23 11:43 ES [id number]) Trunk Strength Trunk Manual Muscle Testing Testing Position Supine Flexion 3- Fair- PT-OP-Q Treatments Start: 04/12/23 08:17 Freq: Status: Active Protocol: Document 05/26/23 13:43 ES (Rec: 05/26/23 15:59 ES [id number]) Cardio Equipment Recumbent Stepper (Sci-Fit) Duration (Minutes) 6 Resistance 2.0 Seat Position 9 Therapeutic Exercises Prone Exercises Bird dog Side bilateral Reps/Minutes x10 Comments instructed for home (see handout) Arm and leg raises Side bilateral Reps/Minutes x10 ea side Comments reviewed for HEP Self-Care/Home Management Treatment Education Patient Education Body Mechanics,Joint Protection,Posture Other Education Provided with handout on posture/body mechanics for ADL 's; reviewed with patient and had him demonstrate using visual feedback from photos/ videos and mirror. Practiced lifting mechanics using bulgarian ball and mirror; cued for increased hip and knee flexion vs trunk flexion. PT-OP-T Assessment and Plan Start: 04/12/23 08:17 Freq: Status: Active Protocol: Document 05/26/23 13:43 ES (Rec: 05/26/23 15:59 ES [id number]) Physical Therapy Assessment Goals Three Impairment Activity tolerance Short Term Goal (STG) Patient will be able to lift 15 lbs with correct mechanics without cueing and no increase in pain to be able to lift and carry his dog. STG Duration 4 weeks (05/10/23) - met Two Impairment Functional activity Neurophysiologist Goal (LTG) Patient will be independent with HEP/community exercise program for long-term management of pain and function. LTG Duration 6 weeks (05/24/23) - met One Impairment Activity tolerance Impairment Standing limited to 5 minutes Fdc Goal (LTG) Patient will be able to tolerate standing for 20 minutes with 5/10 pain or less to be able to better participate in ADL's. LTG Duration 6 weeks (05/24/23) - not met Progress Towards Goals Progress Towards Goals Slow Progress - Other Progress Comments Chronic issues, impaired memory, decreased motivation. Assessment Summary Assessment Patient was seen for a total of 4 PT visits for strengthening, stretching, HEP instruction, and body mechanics training. He made some progress with therapy, reporting decreased pain levels and improving his Oswestry score indicating improved pain management and function. He is independent in his HEP and is working to increase his walking. He has reached maximum benefit from skilled therapy at this time; will d/c to independent program and patient to follow up with PCP regarding cardiopulmonary rehab. Recommended patient use gym with his for ongoing fitness. Physical Therapy Plan Discharge Physical Therapy Discharge Comments Maximum potential reached
== END 2023-05-27 09:42 | disposition home or self-care (01) ==
LOC: PHYS 13:45
PROVIDERS: Family Provider Student in an Organized Health Care Education/Training Program; PCP Student in an Organized Health Care Education/Training Program; Referring Provider Student in an Organized Health Care Education/Training Program; Visit Provider Student in an Organized Health Care Education/Training Program
DX: M47.9 Spondylosis, unspecified (principal); M47.27 Other spondylosis with radiculopathy, lumbosacral region
CPT/HCPCS: 97110; 97161; 97535

== ENCOUNTER → 2024-03-30 13:58 | Outpatient (CLI) | payer OTHER, SELFPAY ==
[2024-03-30 14:44] LABS: Add Manual Diff / Slide Review NO; Basophils Absolute Auto 0 /uL (0-100); Basophils Percent Auto 0.7 % (0-2); Eosinophils Absolute Auto 100 /uL (0-450); Eosinophils Percent Auto 1.2 % (2-4); Hematocrit 39.6 % (41-53); Hemoglobin 13.2 g/dL (13.5-17.5); Lymphocytes Absolute Auto 800 /uL (1100-4500); Lymphocytes Percent Auto 14.2 % (25-40); Mean Corpuscular HGB Conc 33.4 % (30-36); Mean Corpuscular Hemoglobin 30.6 PG (26-34); Mean Corpuscular Volume 91.6 fL (80-100); Monocytes Absolute Auto 700 /uL (0-900); Monocytes Percent Auto 12.8 % (3-14); Neutrophils Absolute Auto 3900 /uL (1500-7000); Neutrophils Percent Auto 71.1 % (50-75); Platelet Count 196 X10^3/uL (150-400); Red Blood Cell Count 4.33 X10^6/uL (4.5-5.9); Red Cell Distribution Width 13.6 % (11.6-14.8); White Blood Cell Count 5.4 X10^3/uL (4.5-11.0)
[2024-03-30 16:27] LABS: Alanine Aminotransferase 14 IU/L (<50); Albumin 4.5 g/dL (3.5-5.0); Albumin Globulin Ratio 1.5 (1.0-2.8); Alkaline Phosphatase 81 U/L (38-126); Aspartate Aminotransferase 32 IU/L (17-59); BUN Creatinine Ratio 23.8 (6-22); Bilirubin Total 0.8 mg/dL (0.2-1.3); Blood Urea Nitrogen 29 mg/dL (9-20); Calcium 9.3 mg/dL (8.4-10.2); Carbon Dioxide 28 mmol/L (22-32); Chloride 106 mmol/L (98-107); Cholesterol 227 mg/dL (140-199); Estimated Glomerular Filt Rate 57 mL/min (>60); Globulin 3.1 g/dL (1.7-4.1); Glucose 86 mg/dL (80-110); HDL Cholesterol 76 mg/dL (40-60); HEMOLYSIS < 15 (0-50); LDL Cholesterol Calculated 135 mg/dL (<100); Potassium 4.8 mmol/L (3.4-5.1); Sodium 139 mmol/L (137-145); Total Protein 7.6 g/dL (6.3-8.2); Triglycerides 78 mg/dL (35-150)
[2024-03-30 17:31] LABS: Creatinine Urine Random 104.26 mg/dL
== END ==
PROVIDERS: PCP Family Medicine; Referring Provider Family Medicine; Visit Provider Family Medicine
DX: I10 Essential (primary) hypertension (principal); E78.5 Hyperlipidemia, unspecified; N18.31 Chronic kidney disease, stage 3a; Z00.00 Encounter for general adult medical examination without abnormal findings
CPT/HCPCS: 36415; 80053; 80061; 82043; 82570; 85025

== ENCOUNTER → 2024-05-24 08:00 | Outpatient (CLI) | payer OTHER, SELFPAY ==
--- NOTE | 2024-05-24 08:02 | DI.ECHO.S_ITS ---
[facility] : : [address] : : [place] : : [id number] : : Phone: [phone] Echocardiogram Report + + :Name: SUSAN BAXTER Study Date: 05/24/2024 Height: 67 in : :[facility] ReadingLocation: Weight: 146 lb : : Gender: Male BSA: 1.8 m2 : :: 1935 Age: 89 yrs BP: 160/101 mmHg: :Reason For Study: ATRIAL FIBRILLATION : :Ordering Physician: NUNO, : :VERNON Krueger Performed By: Vernon Dennis : :Referring: VERNON REINA : + + Interpretation Summary 1) Normal left ventricular thickness, size, wall motion, and systolic function (EF 60-65%). 2) Normal right ventricular size and function. 3) No significant valvular abnormalities. 4) No prior Echo available for comparison. Procedure: A two-dimensional transthoracic echocardiogram with color flow and Doppler was performed. The study quality was technically adequate. There is no prior echocardiogram noted for this patient. The patient was in atrial fibrillation with heart rates between 55-105 bpm during the exam. Left Ventricle: The left ventricle is normal in size and wall thickness. The ejection fraction is estimated to be 60-65%. Left ventricular systolic function appears normal without focal wall motion abnormalities. Diastolic parameters suggest a relaxation abnormality of the left ventricle, consistent with probable normal filling pressures. Right Ventricle: The right ventricle is normal size. The right ventricular systolic function is normal. Atria: The left atrial size is normal. Right atrial size is normal. The interatrial septum grossly appears intact with no obvious evidence for an atrial septal defect. Mitral Valve: The mitral valve is normal. There is no mitral valve stenosis. There is mild mitral regurgitation. Aortic Valve: The aortic valve is trileaflet. There is no aortic valve stenosis. There is trace aortic regurgitation. Tricuspid Valve: The tricuspid valve is normal. There is no tricuspid stenosis. There is mild tricuspid regurgitation. The right ventricular systolic pressure is estimated to be at least 26.0 mmHg based on an estimated right atrial pressure of 8 mm Hg. Pulmonic Valve: The pulmonic valve is not well visualized. There is no pulmonic valvular stenosis. There is trace pulmonic regurgitation. Great Vessels: The aortic root is borderline dilated. The dimensions of the ascending aorta are normal. The IVC is dilated (diameter is greater than 2.1 cm) yet it collapses greater than 50% with a sniff. This suggests a right atrial pressure of 8 mm Hg. Pericardium/ Pleura There is no pericardial effusion. There is no pleural effusion. MMode/2D Measurements & Calculations LVIDd: 4.3 cm LVOT diam: 2.2 cm LVIDs: 2.8 cm Ao root diam: 3.8 cm FS: 34.1 % asc Aorta Diam: 3.5 cm IVSd: 0.89 cm LVPWd: 0.84 cm LV lugo. diameter/BSA (cm/m^2): 2.4 LV sys. diameter/BSA (cm/m^2): 1.6 LA A2 area: 19.1 cm2 RA long axis: 5.2 cm LA A4 area: 19.1 cm2 RA area: 15.4 cm2 LA length (vol): 5.3 cm RA vol: 38.3 ml LA vol: 58.1 ml RA : 21.7 ml/m2 LA vol index: 32.8 ml/m2 IVC diam: 2.3 cm RVD1 (basal): 2.5 cm RVD2 (mid): 1.8 cm TAPSE: 2.3 cm Doppler Measurements & Calculations Ao V2 max: 98.9 cm/sec LVOT Max Martin: 68.3 cm/sec Ao V2 mean: 73.5 cm/sec LV V1 max P.9 mmHg Ao max P.0 mmHg LV V1 VTI: 16.0 cm Ao mean P.4 mmHg MARIEL(I,D): 3.0 cm2 Ao V2 VTI: 20.3 cm MARIEL(V,D): 2.6 cm2 sev ratio: 0.79 MARIEL indexed to BSA (cm^2/m^2): 1.7 MV E max martin: 35.2 cm/sec TR max martin: 212.0 cm/sec MV A max martin: 82.9 cm/sec TR max P.0 mmHg MV E/A: 0.42 PA V2 max: 72.8 cm/sec Med Peak E' Martin: 4.6 cm/sec PA V2 mean: 50.2 cm/sec E/E' med: 7.7 PA mean P.1 mmHg Lat Peak E' Martin: 4.7 cm/sec PA pr(Accel): 44.2 mmHg E/E' lat: 7.5 E/e' average: 7.6 MV dec time: 0.24 sec SV(LVOT): 61.3 ml Reading Physician:01:36 PM
== END ==
LOC: ECHO 08:01
PROVIDERS: PCP Family Medicine; Referring Provider Family Medicine; Visit Provider Family Medicine
DX: I08.1 Rheumatic disorders of both mitral and tricuspid valves (principal); I48.91 Unspecified atrial fibrillation
CPT/HCPCS: 93306

== ENCOUNTER 2024-06-25 14:15 | Outpatient (RCR) | payer OTHER, SELFPAY | END 2024-06-25 16:15 | LOC: PUL 14:15 | PROVIDERS: PCP Family Medicine; Referring Provider Internal Medicine; Visit Provider Internal Medicine | DX: J44.9 Chronic obstructive pulmonary disease, unspecified (principal) | CPT/HCPCS: G0237; G0238 ==

== ENCOUNTER → 2024-08-28 16:23 | Outpatient (CLI) | payer OTHER, SELFPAY ==
[2024-08-28 17:59] LABS: Estimated Glomerular Filt Rate 51 mL/min (>60)
== END ==
LOC: LAB 16:25
PROVIDERS: PCP Family Medicine; Referring Provider Urology; Visit Provider Urology
DX: C61 Malignant neoplasm of prostate (principal)
CPT/HCPCS: 36415; 82565; 84153; 84154